=== PATIENT | male | born 1980 | race Caucasian/White ===

== ENCOUNTER → 2018-09-26 07:56 | Outpatient (CLI) | payer BC, SELFPAY ==
--- NOTE | 2018-09-26 07:57 | DI.US.S_ITS ---
PROCEDURE: US PERIPH VENOUS LOW EXTREM RT INDICATIONS: possible vericose veins right lower calf TECHNIQUE: Real-time imaging, as well as color and pulse Doppler interrogation, were performed of the lower extremity deep veins from the inguinal ligament to the popliteal fossa. COMPARISON: None. FINDINGS: The deep veins are normally compressible, and free of intraluminal thrombus. Color and pulse Doppler demonstrate normal phasic intraluminal flow. There is normal augmentation response to distal compression maneuver. IMPRESSION: No DVT is found, no superficial vein thrombosis is identified. Reported swelling and bruising, right lower extremity, etiology is not identified. A focal hematoma is not found. Dictated by: Kit Gan M.D. on 09/26/2018 at 8:27 Approved by: Kit Gan M.D. on 09/26/2018 at 8:28
== END ==
PROVIDERS: Visit Provider Physician Assistant
DX: M79.89 Other specified soft tissue disorders (principal)
CPT/HCPCS: 93971

== ENCOUNTER → 2019-03-11 11:00 | Outpatient (CLI) | payer BC, SELFPAY ==
[2019-03-11 12:18] LABS: Add Manual Diff / Slide Review NO; Basophils Absolute Auto 100 /uL (0-100); Basophils Percent Auto 1.2 % (0-2); Eosinophils Absolute Auto 600 /uL (0-450); Eosinophils Percent Auto 7.8 % (2-4); Hematocrit 45.5 % (41-53); Hemoglobin 15.4 g/dL (13.5-17.5); Lymphocytes Absolute Auto 2100 /uL (1100-4500); Lymphocytes Percent Auto 27.7 % (25-40); Mean Corpuscular HGB Conc 33.9 % (30-36); Mean Corpuscular Hemoglobin 29.1 PG (26-34); Mean Corpuscular Volume 85.7 fL (80-100); Monocytes Absolute Auto 700 /uL (0-900); Neutrophils Absolute Auto 4200 /uL (1500-7000); Neutrophils Percent Auto 54.3 % (50-75); Platelet Count 199 X10^3/uL (150-400); Red Cell Distribution Width 13.3 % (11.6-14.8); White Blood Cell Count 7.7 X10^3/uL (4.5-11.0)
[2019-03-11 12:19] LABS: Appearance Urine UA CLEAR; Bilirubin Urine UA NEGATIVE (NEGATIVE); Color Urine UA YELLOW; Glucose Urine UA NEGATIVE (Negative); Ketones Urine UA NEGATIVE (NEGATIVE); Leukocyte Esterase Urine UA NEGATIVE (NEGATIVE); Nitrite Urine UA NEGATIVE (Negative); Occult Blood Urine UA NEGATIVE (Negative); Protein Urine UA NEGATIVE (Negative); Specific Gravity Urine UA >=1.030 (1.000-1.035); Urobilinogen Urine UA 0.2 E.U./dL (0.2); pH Urine UA 5.5 (4.5-8.0)
[2019-03-11 12:39] LABS: Alanine Aminotransferase 35 IU/L (21-72); Albumin 4.4 g/dL (3.5-5.0); Albumin Globulin Ratio 1.5 (1.0-2.8); Alkaline Phosphatase 71 U/L (38-126); Aspartate Aminotransferase 20 IU/L (17-59); BUN Creatinine Ratio 17.5 (6-22); Bilirubin Total 0.5 mg/dL (0.2-1.3); Blood Urea Nitrogen 14 mg/dL (9-20); Calcium 9.4 mg/dL (8.4-10.2); Carbon Dioxide 25 mmol/L (22-32); Chloride 103 mmol/L (98-107); Cholesterol 202 mg/dL (140-199); Estimated Glomerular Filt Rate > 60.0 mL/min (>60); Globulin 2.9 g/dL (1.7-4.1); Glucose 88 mg/dL (70-100); HDL Cholesterol 44 mg/dL (40-60); HEMOLYSIS < 15 (0-50); LDL Cholesterol Calculated 136 mg/dL (<100); Potassium 4.3 mmol/L (3.4-5.1); Sodium 141 mmol/L (137-145); Total Protein 7.3 g/dL (6.3-8.2); Triglycerides 112 mg/dL (35-150)
[2019-03-11 16:16] LABS: Vitamin D 25 Hydroxy (D3) 18.4 ng/mL (30.0-100.0)
== END ==
PROVIDERS: Visit Provider Family Medicine
DX: E55.9 Vitamin D deficiency, unspecified (principal); E66.9 Obesity, unspecified
CPT/HCPCS: 36415; 80053; 80061; 81003; 82306; 84443; 85025

== ENCOUNTER 2019-07-05 21:15 | Emergency (ER) | payer BC, SELFPAY ==
--- NOTE | 2019-07-05 21:16 | DI.RAD.S_ITS ---
PROCEDURE: XR CHEST 1V INDICATIONS: chest pain TECHNIQUE: One view of the chest was acquired. COMPARISON: , , CHEST 2 VIEW, 12/08/2017, 22:08. FINDINGS: Surgical changes and devices: None. Lungs and pleura: Lungs are clear. No pleural effusions or pneumothorax. Mediastinum: Mediastinal contours appear normal. Heart size is normal. Bones and chest wall: No suspicious bony lesions. Overlying soft tissues appear unremarkable. IMPRESSION: No acute pulmonary process. Dictated by: Kathie Stacy M.D. on 07/05/2019 at 21:47 Approved by: Kathie Stacy M.D. on 07/05/2019 at 21:49
[2019-07-05 21:23] VITALS: BP 157/76; PULSE 96; RESP 16; TEMP 36.5; O2SAT 97; BMI 51.2
[2019-07-05 21:37] VITALS: BP 162/89; PULSE 92; RESP 18; O2SAT 96
[2019-07-05 21:43] LABS: Add Manual Diff / Slide Review NO; Basophils Absolute Auto 100 /uL (0-100); Basophils Percent Auto 1.1 % (0-2); Eosinophils Absolute Auto 700 /uL (0-450); Eosinophils Percent Auto 8.6 % (2-4); Hematocrit 44.7 % (41-53); Hemoglobin 15.3 g/dL (13.5-17.5); Lymphocytes Absolute Auto 2500 /uL (1100-4500); Lymphocytes Percent Auto 31.6 % (25-40); Mean Corpuscular HGB Conc 34.2 % (30-36); Mean Corpuscular Hemoglobin 29.2 PG (26-34); Mean Corpuscular Volume 85.4 fL (80-100); Monocytes Absolute Auto 500 /uL (0-900); Monocytes Percent Auto 6.1 % (3-14); Neutrophils Absolute Auto 4200 /uL (1500-7000); Neutrophils Percent Auto 52.6 % (50-75); Platelet Count 205 X10^3/uL (150-400); Red Blood Cell Count 5.24 X10^6/uL (4.5-5.9); Red Cell Distribution Width 13.3 % (11.6-14.8); White Blood Cell Count 7.9 X10^3/uL (4.5-11.0)
--- NOTE | 2019-07-05 21:45 | ED.CHESTPAIN ---
HPI - Chest Pain General Chief Complaint: Chest Pain Stated Complaint: thought having a heart attack, but not sure Time Seen by Provider: 07/05/19 21:16 Source: patient Mode of arrival: Ambulatory Limitations: no limitations History of Present Illness HPI narrative: Patient is a 38-year-old male has a prior history of cholecystectomy and had a prior history of pancreatitis here for evaluation of epigastric and chest pain. Patient states that he did eat a big meal last evening. He states that he was in his office moving some things around and when he bent over he got retrosternal chest pain. He states that it was a gradual onset but it did reach its maximum within about 30 minutes. Since then it has improved somewhat. He states that it hurts somewhat chin to took his breath away. He is currently not having any shortness of breath. He did call 911 who came to his house. Reported that he did an EKG and it was ?normal? he decided to come to the emergency department by private vehicle. Related Data Previous Rx's Medication Instructions Recorded ipratropium-albuterol 3 ml INH QIDP PRN #60 ea 06/20/16 fluticasone 250 mcg-salmeterol 50 1 inhalation INHALATION Q12H #60 05/13/18 mcg/dose blistr powdr for each inhalation albuterol sulfate 90 mcg/actuation 1 puff INHALATION Q6H PRN #18 gram 03/17/19 aerosol inhaler cyclobenzaprine 10 mg tablet 10 mg PO BEDTIME #10 tab 04/15/19 Allergies Allergy/AdvReac Type Severity Reaction Status Date / Time budesonide [From Symbicort] Allergy Unknown Verified 04/15/19 15:35 corn [CORN] Allergy Unknown Verified 04/15/19 15:35 formoterol [From Symbicort] Allergy Unknown Verified 04/15/19 15:35 CAT DANDER Allergy Unknown Uncoded 11/20/17 12:26 GRASS Allergy Unknown Uncoded 11/20/17 12:26 Review of Systems Constitutional Constitutional: Denies fever(s) and Denies headache(s) ENT Ears, Nose, Mouth, and Throat: Denies headache(s) Cardiovascular Cardiovascular: Reports chest pain and Reports dyspnea Respiratory Respiratory: Reports dyspnea Gastrointestinal Gastrointestinal: Reports abdominal pain (Epigastric pain), Denies change in stool character, Denies diarrhea and Denies vomiting Genitourinary Genitourinary: Denies dysuria Musculoskeletal Musculoskeletal: Denies myalgias and Denies arthralgias Integumentary/Breasts Skin/Breast: Denies lesions and Denies rash Neurologic Neurologic: Denies behavioral changes and Denies headache(s) Psychiatric Psychiatric: Denies behavioral changes Hematologic/Lymphatic Comments: Not on blood thinners Patient History Medical History Asthma exacerbation (Inactive) Pancreatitis (Acute) Surgical History History of cholecystectomy (Acute) Social History Smoking Status: Never smoker Substance Use Type: does not use Exam Initial Vital Signs Initial Vital Signs: Vital Signs Temperature 97.7 F 07/05/19 21:23 Pulse Rate 96 H 07/05/19 21:23 Respiratory Rate 16 07/05/19 21:23 Blood Pressure 157/76 H 07/05/19 21:23 Pulse Oximetry 97 07/05/19 21:23 Const General: cooperative, comfortable and well developed Orientation: alert, awake and oriented x3 HENMT Head: normal to inspection and normocephalic Resp Effort & Inspection: normal respiratory effort Auscultation: clear to auscultation bilaterally Cardio Rate: regular rate Rhythm: regular rhythm Skin Lesions: no lesions Rashes: no rashes Neuro General: alert and awake Cognition: normal cognition Speech: speech normal Motor: muscle tone normal throughout Extrem General: normal to inspection and capillary refill normal Psych Appearance: grossly normal and well kempt Scores HEART Score Heart Score history: Slightly Suspicious Heart Score EKG: Normal Heart Score Age: < 45 years old Heart Score risk factors: 1-2 risk factors Heart Score troponin: < or = to normal limit Heart Score Total: 1 Course Orders Ordered: ED Orders 07/05/19 21:16 XR chest 1V Stat 07/05/19 21:17 EKG-12 Lead Stat 07/05/19 21:26 XR chest 1V Stat 07/05/19 21:32 Complete Blood Count AUTO DIFF Stat Comprehensive Metabolic Panel Stat Lipase Stat Partial Thromboplastin Time Stat Prothrombin Time INR Stat Troponin & CK Cardiac Panel Stat Vital Signs Vital signs: Vital Signs - 8 hr 07/05/19 21:23 07/05/19 21:37 Temperature 97.7 F Pulse Rate 96 H 92 H Respiratory Rate 16 18 Blood Pressure 157/76 H Blood Pressure [Left Arm] 162/89 H Pulse Oximetry 97 96 MDM - Chest Pain Lab Data Attestation: I reviewed the patient's lab results. Result diagrams: 07/05/19 21:32 07/05/19 21:32 Labs: Lab Results 07/05/19 07/05/19 07/05/19 Range/Units 21:32 21:32 21:32 WBC 7.9 (4.5-11.0) X10^3/uL RBC 5.24 (4.5-5.9) X10^6/uL Hgb 15.3 (13.5-17.5) g/dL Hct 44.7 (41-53) % MCV 85.4 (80-100) fL MCH 29.2 (26-34) PG MCHC 34.2 (30-36) % RDW 13.3 (11.6-14.8) % Plt Count 205 (150-400) X10^3/uL Neut % (Auto) 52.6 (50-75) % Lymph % (Auto) 31.6 (25-40) % [place] % (Auto) 6.1 (3-14) % Eos % (Auto) 8.6 H (2-4) % Baso % (Auto) 1.1 (0-2) % Neut # (Auto) 4200 (8979-3441) /uL Lymph # (Auto) 2500 (7291-2731) /uL [place] # (Auto) 500 (0-900) /uL Eos # (Auto) 700 H (0-450) /uL Baso # (Auto) 100 (0-100) /uL PT 11.2 (10.1-12.7) SECONDS INR 1.0 (0.9-1.3) APTT 28 (26.4-36.2) SECONDS Sodium 139 (137-145) mmol/L Potassium 3.9 (3.4-5.1) mmol/L Chloride 101 (98-107) mmol/L Carbon Dioxide 29 (22-32) mmol/L BUN 18 (9-20) mg/dL Creatinine 1.00 (0.66-1.25) mg/dL Estimated GFR > 60.0 (>60) mL/min BUN/Creatinine Ratio 18.0 (6-22) Glucose 122 H (70-100) mg/dL Calcium 9.5 (8.4-10.2) mg/dL Total Bilirubin 0.4 (0.2-1.3) mg/dL AST 53 (17-59) IU/L ALT 39 (<50) IU/L Alkaline Phosphatase 78 (38-126) U/L Total Creatine Kinase 109 (55-170) U/L CK-MB (CK-2) 0.71 (<2.37) ng/mL CK-MB (CK-2) Rel Index 0.7 L (1.5-5.0) % Troponin I < 0.012 (0.01-0.034) ng/mL Total Protein 7.7 (6.3-8.2) g/dL Albumin 4.5 (3.5-5.0) g/dL Globulin 3.2 (1.7-4.1) g/dL Albumin/Globulin Ratio 1.4 (1.0-2.8) Lipase 301 H (23-300) U/L Imaging Data Chest x-ray: Radiologist's impression: [address] [id number] XRay Report Signed Patient: Donis Arrington [facility]#: [id number] : 1980Acct:[id number] Age/Sex: 38 / MDate of Service: 07/05/19 Loc: ED Accession Number: [id number] Procedure: XR chest 1V Ordering Provider: Noel Dickerson D.O. PROCEDURE: XR CHEST 1V INDICATIONS: chest pain TECHNIQUE: One view of the chest was acquired. COMPARISON: [facility], , CHEST 2 VIEW, 12/08/2017, 22:08. FINDINGS: Surgical changes and devices: None. Lungs and pleura: Lungs are clear. No pleural effusions or pneumothorax. Mediastinum: Mediastinal contours appear normal. Heart size is normal. Bones and chest wall: No suspicious bony lesions. Overlying soft tissues appear unremarkable. IMPRESSION: No acute pulmonary process. Dictated by: Kathie Stacy M.D. on 07/05/2019 at 21:47 Approved by: Kathie Stacy M.D. on 07/05/2019 at 21:49 ECG Data Attestation: I personally reviewed and interpreted this ECG as follows: Prior ECG tracings: not available for review Interpretation: Sinus rhythm Normal axis Normal QRS Normal QTC No ST T wave changes MDM Narrative Medical decision making narrative: Patient's history and physical exam is not consistent with ACS. His EKG is unremarkable. Chest x-ray is unremarkable. Low risk heart score. Asymptomatic the time my exam. I do suspect this is a GI etiology. I discussed this with the patient. Did discuss importance of following up with his primary provider so that he could potentially get a referral to see GI. Sounds like he has had esophageal spasms in the past. His given return precautions follow-up instructions. He expressed understanding and agreement plan Discharge Plan Departure Patient Disposition: Home Clinical Impression: Atypical chest pain Discharge Date/Time: 07/05/19 22:24 Instructions: DI for Gastroesophageal Reflux Disease (GERD), DI for Atypical Chest Pain Activity Restrictions/Additional Instructions: I recommend that you continue all of your medications as directed. Contact your primary provider to discuss the indications for referral to see GI. Return to the emergency department for any new or worsening symptoms Prescriptions: No Action cyclobenzaprine 10 mg tablet 10 mg PO BEDTIME Qty: 10 RF: 0 triamcinolone acetonide [Kenalog] 40 mg/mL suspension 40 mg IM ONCE Qty: 1 RF: 0 ipratropium-albuterol 3 ML solution for nebulization 3 ml INH QIDP PRNQty: 60 RF: 1 fluticasone propion-salmeterol [Advair Diskus] 250-50 mcg/dose blister with device 1 inhalation INHALATION Q12H Qty: 60 RF: 5 albuterol sulfate [ProAir HFA] 90 mcg/actuation HFA aerosol inhaler 1 puff INHALATION Q6H PRN (Reason: shortness of breath) Qty: 18 RF: 5 Referrals: Marion Gallagher DO [Primary Care Provider] -
[2019-07-05 21:47] LABS: Prothrombin Time 11.2 SECONDS (10.1-12.7)
[2019-07-05 21:50] LABS: PTT Partial Thromboplastin Tim 28 SECONDS (26.4-36.2)
[2019-07-05 21:52] LABS: Alanine Aminotransferase 39 IU/L (<50); Albumin 4.5 g/dL (3.5-5.0); Albumin Globulin Ratio 1.4 (1.0-2.8); Alkaline Phosphatase 78 U/L (38-126); Aspartate Aminotransferase 53 IU/L (17-59); Bilirubin Total 0.4 mg/dL (0.2-1.3); Blood Urea Nitrogen 18 mg/dL (9-20); Calcium 9.5 mg/dL (8.4-10.2); Carbon Dioxide 29 mmol/L (22-32); Chloride 101 mmol/L (98-107); Creatine Kinase 109 U/L (55-170); Estimated Glomerular Filt Rate > 60.0 mL/min (>60); Globulin 3.2 g/dL (1.7-4.1); Glucose 122 mg/dL (70-100); HEMOLYSIS 27 (0-50); Lipase 301 U/L (23-300); Potassium 3.9 mmol/L (3.4-5.1); Sodium 139 mmol/L (137-145); Total Protein 7.7 g/dL (6.3-8.2)
[2019-07-05 22:03] LABS: Troponin I < 0.012 ng/mL (0.01-0.034)
[2019-07-05 22:07] LABS: CKMB % Relative Index 0.7 % (1.5-5.0); Creatine Kinase MB 0.71 ng/mL (<2.37)
== END 2019-07-05 22:24 | disposition home or self-care (01) ==
PROVIDERS: Emergency Provider Emergency Medicine; PCP Family Medicine
DX: R07.89 Other chest pain (principal); R10.13 Epigastric pain; R06.00 Dyspnea, unspecified
CPT/HCPCS: 36415; 71045; 80053; 82550; 82553; 83690; 84484; 85025; 85610; 85730; 93005; 99283; 99285

== ENCOUNTER → 2019-07-27 14:47 | Outpatient (CLI) | payer BC, SELFPAY ==
--- NOTE | 2019-07-27 14:49 | DI.RAD.S_ITS ---
PROCEDURE: XR LUMBAR SPINE 2-3V INDICATIONS: back pain TECHNIQUE: 3 views of the lumbar spine were acquired. COMPARISON: None. FINDINGS: Bones: 5 [id number] vertebrae are present. There is slightly scoliotic bony alignment, convex leftward centered at L3. No vertebral body compression fractures. No suspicious bony lesions. Mild degenerative disc disease is seen at the L1-L2 level and the L5-S1 level. Soft tissues: Overlying bowel gas pattern is normal. No suspicious soft tissue calcifications. IMPRESSION: Minimal degenerative disc disease, at the thoracolumbar junction and lumbosacral junction. No compression fracture found. Slight levoscoliosis centered at the mid lumbosacral spine. Dictated by: Kit Gan M.D. on 07/27/2019 at 15:20 Approved by: Kit Gan M.D. on 07/27/2019 at 15:21
== END ==
PROVIDERS: PCP Family Medicine; Visit Provider Family Medicine
DX: M54.16 Radiculopathy, lumbar region (principal); M54.9 Dorsalgia, unspecified
CPT/HCPCS: 72100

== ENCOUNTER → 2020-03-12 14:13 | Outpatient (CLI) | payer BC, SELFPAY ==
--- NOTE | 2020-03-12 14:15 | DI.RAD.S_ITS ---
PROCEDURE: XR HIP W PEL IF DONE RT 2V INDICATIONS: R hip pain x years TECHNIQUE: AP pelvis with lateral view(s) of the right hip(s). COMPARISON: [facility], CR, XR LUMBAR SPINE 2-3V, 07/27/2019, 14:46. FINDINGS: Bones: No fractures or dislocations. Pelvic ring appears intact. No suspicious bony lesions. There is mild superior joint space narrowing seen of right hip, with associated remodeling changes with subchondral sclerosis and osteophyte formation. Soft tissues: The visualized bowel gas pattern is normal. No suspicious soft tissue calcifications. IMPRESSION: Mild degenerative changes seen of the right hip. If it would be helpful for clinical management decision making, please consider a dedicated hip MRI for further evaluation (assuming that there is no contraindication). If there is strong clinical concern for a labral abnormality, this should be performed according to the arthrogram protocol. Dictated by: Ziyad Hawley M.D. on 03/12/2020 at 13:45 Approved by: Ziyad Hawlye M.D. on 03/12/2020 at 13:46
== END ==
PROVIDERS: PCP Registered Nurse Diabetes Educator; Referring Provider Registered Nurse Diabetes Educator; Visit Provider Registered Nurse Diabetes Educator
DX: M54.5 Low back pain (principal); M25.551 Pain in right hip
CPT/HCPCS: 73502

== ENCOUNTER → 2020-07-06 16:51 | Outpatient (CLI) | payer BC, SELFPAY ==
[2020-07-06 17:39] LABS: D Dimer < 200 ng/mL (<230)
== END ==
PROVIDERS: PCP Registered Nurse Diabetes Educator; Referring Provider Student in an Organized Health Care Education/Training Program; Visit Provider Student in an Organized Health Care Education/Training Program
DX: M79.652 Pain in left thigh (principal)
CPT/HCPCS: 36415; 85379

== ENCOUNTER → 2020-09-05 10:36 | Outpatient (CLI) | payer BC, SELFPAY ==
[2020-09-05 11:26] LABS: Add Manual Diff / Slide Review NO; Basophils Absolute Auto 100 /uL (0-100); Basophils Percent Auto 1.5 % (0-2); Eosinophils Absolute Auto 700 /uL (0-450); Eosinophils Percent Auto 8.6 % (2-4); Hematocrit 42.6 % (41-53); Hemoglobin 13.9 g/dL (13.5-17.5); Lymphocytes Absolute Auto 2100 /uL (1100-4500); Lymphocytes Percent Auto 26.8 % (25-40); Mean Corpuscular HGB Conc 32.8 % (30-36); Mean Corpuscular Volume 85.5 fL (80-100); Monocytes Absolute Auto 800 /uL (0-900); Neutrophils Absolute Auto 4300 /uL (1500-7000); Neutrophils Percent Auto 53.1 % (50-75); Platelet Count 215 X10^3/uL (150-400); Red Blood Cell Count 4.98 X10^6/uL (4.5-5.9); Red Cell Distribution Width 13.6 % (11.6-14.8)
[2020-09-05 11:39] LABS: Hemoglobin A1C% w Est Avg Glu 6.2 % (4.0-6.0)
[2020-09-05 11:57] LABS: Alanine Aminotransferase 32 IU/L (<50); Albumin 4.2 g/dL (3.5-5.0); Albumin Globulin Ratio 1.5 (1.0-2.8); Alkaline Phosphatase 77 U/L (38-126); Aspartate Aminotransferase 23 IU/L (17-59); BUN Creatinine Ratio 11.5 (6-22); Bilirubin Total 0.3 mg/dL (0.2-1.3); Blood Urea Nitrogen 10 mg/dL (9-20); Calcium 9.3 mg/dL (8.4-10.2); Carbon Dioxide 31 mmol/L (22-32); Chloride 103 mmol/L (98-107); Cholesterol 188 mg/dL (140-199); Estimated Glomerular Filt Rate > 60.0 mL/min (>60); Globulin 2.8 g/dL (1.7-4.1); Glucose 106 mg/dL (70-100); HDL Cholesterol 44 mg/dL (40-60); HEMOLYSIS < 15 (0-50); LDL Cholesterol Calculated 124 mg/dL (<100); Potassium 4.3 mmol/L (3.4-5.1); Sodium 139 mmol/L (137-145); Triglycerides 100 mg/dL (35-150)
== END ==
PROVIDERS: PCP Family Medicine; Referring Provider Family Medicine; Visit Provider Family Medicine
DX: E78.5 Hyperlipidemia, unspecified (principal); R73.09 Other abnormal glucose
CPT/HCPCS: 36415; 80053; 80061; 83036; 85025

== ENCOUNTER 2021-01-12 02:20 | Emergency (ER) | payer BC, SELFPAY ==
[2021-01-12 02:30] VITALS: BP 112/55; PULSE 89; RESP 98; TEMP 37.1; O2SAT 98; BMI 50.2
--- NOTE | 2021-01-12 02:45 | DI.US.S_ITS ---
PROCEDURE: US PERIPH VENOUS LOW EXTREM BI INDICATIONS: EDEMA TECHNIQUE: Real-time imaging, as well as color and pulse Doppler interrogation, were performed of the deep veins of both legs from the inguinal ligament to the popliteal fossa. COMPARISON: None. FINDINGS: Right: The common femoral, femoral and popliteal veins are normally compressible, and free of intraluminal thrombus. Color and pulse Doppler demonstrate normal phasic intravascular flow. There is normal augmentation response to distal compression maneuver. Left: The common femoral, femoral and popliteal veins are normally compressible, and free of intraluminal thrombus. Color and pulse Doppler demonstrate normal phasic intravascular flow. There is normal augmentation response to distal compression maneuver. IMPRESSION: No evidence of deep vein thrombosis involving either the right or left lower extremities. Dictated by: Lay Garcia MD, PhD on 01/12/2021 at 8:17 Approved by: Lay Garcia MD, PhD on 01/12/2021 at 8:18
--- NOTE | 2021-01-12 02:45 | ED.EXTPRO ---
HPI - Extremity Problem General Chief complaint: Extremity Problem,Nontraumatic Stated complaint: redness/swelling both legs Time Seen by Provider: 01/12/21 02:38 Source: patient Mode of arrival: Ambulatory Limitations: no limitations History of Present Illness HPI Narrative: Patient denies any chest pain dyspnea. No recent illness. No fever chills. Denies any leg pain or redness. Patient here complains only of bilateral equal leg swelling. 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 Has been at the desk more than usual in the past 2 or 3 weeks. Today had many hours of sitting. Did not elevate his feet or legs. 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 Would work for hours at a time. Take short breaks. No prior history of DVT. No recent illness. No recent surgery. MD Complaint: extremity swelling Related Data Previous Rx's Medication Instructions Recorded ipratropium-albuterol 3 ml INH QIDP PRN #60 ea 06/20/16 albuterol sulfate 90 mcg/actuation 2 puff INHALATION Q4H PRN #18 g 07/06/20 aerosol inhaler fluticasone 250 mcg-salmeterol 50 1 inh INHALATION Q12H #60 each 10/04/20 mcg/dose blistr powdr for inhalation Allergies Allergy/AdvReac Type Severity Reaction Status Date / Time corn [CORN] Allergy Severe aslthma Verified 09/05/20 09:31 and Upper resp inflamamation. budesonide [From Symbicort] Allergy Unknown Verified 09/05/20 09:31 formoterol [From Symbicort] Allergy Unknown Verified 09/05/20 09:31 CAT DANDER Allergy Severe aslthma Uncoded 09/05/20 09:31 and Upper resp inflamamation. GRASS Allergy Severe aslthma Uncoded 09/05/20 09:31 and Upper resp inflamamation. Review of Systems Review of Systems Narrative: GENERAL: Denies chills, fatigue, malaise, fever, sweats. HEENT: Denies sinus pain, ear pain, sore throat RESPIRATORY: Denies dyspnea, cough CARDIOVASCULAR: Denies chest pain, palpitations GASTROINTESTINAL: Denies nausea, vomiting, abdominal pain : Denies dysuria, frequency, hematuria MUSCULOSKELETAL: denies muscle or bony pain, complains of edema SKIN: Denies rash, skin lesions NEUROLOGIC: Denies weakness, numbness ROS Unobtainable: All systems reviewed & are unremarkable except as noted in HPI and below Patient History Medical History (Updated 01/12/21 @ 03:54 by Rosendo Nova MD) Asthma exacerbation Hip pain Low back pain Pancreatitis Surgical History History of cholecystectomy Social History marital status: number of children: 3 household members: spouse and children Smoking Status: Never smoker alcohol intake: never substance use type: does not use Smoking Status: Never smoker Substance Use Type: does not use Exam Narrative Exam Narrative: GENERAL: in no distress, not toxic not dyspneic HEAD: Normocephalic. EYES: Pupils equal round No scleral icterus. No injection no discharge ENT: Mucous membranes moist. NECK: Trachea midline. CARDIOVASCULAR: Regular rate and rhythm without murmurs RESPIRATORY: Clear to auscultation. Breath sounds equal bilaterally. No wheezes, rales, or rhonchi. GASTROINTESTINAL: Abdomen soft, non-tender EXTREMITIES: No gross deformities. There is symmetric bilateral leg and ankle and pedal edema. No cellulitis. Not tender on palpation of calves. No palpable cords. Skin intact. No erythema or induration BACK: No flank tenderness. NEURO: AOx4. SKIN: Warm and dry PSYCH: Not anxious, is cooperative Initial Vital Signs Initial Vital Signs: Vital Signs Temperature 98.8 F 01/12/21 02:30 Pulse Rate 89 01/12/21 02:30 Respiratory Rate 98 H 01/12/21 02:30 Blood Pressure 112/55 L 01/12/21 02:30 Pulse Oximetry 98 01/12/21 02:30 Course Course Course Narrative: No new issues during course of stay Orders Ordered: ED Orders 01/12/21 02:45 US periph venous low extrem bi Stat Reevaluation(s) Reevaluation #1: Reviewed ultrasound results with patient. He agrees with treatment plan discharge home and follow up and will elevate his legs when at rest. Also he will make attempts to keep his legs elevated with longer wrist at the desk. 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 Vital signs exam and ultrasound reassuring. At this time no EKG blood work BNP chest x-ray. Patient has no no no no chest complaints chest pain palpitations or dyspnea. Clinically likely dependent edema given patient's long hours working in in seated position in the past 2 weeks and especially today greater than 14 hours Discharge Plan Departure Patient Disposition: Home Clinical Impression: Edema, peripheral Instructions: DI for Peripheral Edema -- Bilateral Activity Restrictions/Additional Instructions: See family doctor within a week for recheck. Return if worsening symptoms or if any questions or concerns. Return if any chest pain or trouble breathing. Return if any fever or redness to the legs. Prescriptions: No Action ipratropium-albuterol 3 ML solution for nebulization 3 ml INH QIDP PRNQty: 60 RF: 1 albuterol sulfate [ProAir HFA] 90 mcg/actuation HFA aerosol inhaler 2 puff INHALATION Q4H PRN (Reason: shortness of breath) Qty: 18 RF: 3 fluticasone propion-salmeterol [Advair Diskus] 250-50 mcg/dose blister with device 1 inh INHALATION Q12H Qty: 60 RF: 5 Referrals: Brad Oliver MD [Primary Care Provider] -
[2021-01-12 04:13] VITALS: BP 122/63; PULSE 73; RESP 15; O2SAT 96
== END 2021-01-12 04:13 | disposition home or self-care (01) ==
PROVIDERS: Emergency Provider Emergency Medicine; PCP Family Medicine
DX: R60.0 Localized edema (principal)
CPT/HCPCS: 93970; 99281; 99283

== ENCOUNTER 2021-06-13 22:17 | Emergency (ER) | payer BC, SELFPAY ==
[2021-06-13 22:18] VITALS: BP 145/85; PULSE 86; RESP 20; TEMP 36.9; O2SAT 94; BMI 50.2
[2021-06-13] MEDS: TET,DIPH,PERTUSS(ACELL),VAC/PF 0.5 ML SYRINGE IM (23:56)
[2021-06-14] VITALS: BP 133/84; PULSE 85; RESP 15; O2SAT 96
--- NOTE | 2021-06-14 01:10 | ED_ITS ---
HPI - Wound/Laceration General Chief Complaint: Wound/Laceration Stated Complaint: left leg infection Time Seen by Provider: 06/14/21 01:09 Source: patient Mode of arrival: Ambulatory Limitations: no limitations History of Present Illness HPI narrative: Otherwise healthy 40-year-old gentleman with history of asthma only was vacationing in [facility] and 5-6 days ago cut the posterior portion of his left lower calf on a pool ladder. It was a bit ragged he used antibiotic ointment and Band-Aids at the time. Had a difficult time keeping it covered because he was in an out both pool and salt water along with the significant humidity. He has noted over the last day or so that it is becoming increasingly red and he is worried that it is infected. He is able to walk on the leg has not noticed increased swelling to the lower leg and is not having any lymphangitis streaking. He describes no fevers, abdominal pain, vomiting diarrhea. Related Data Previous Rx's Medication Instructions Recorded ipratropium 0.5 mg-albuterol 3 mg 3 ml INH QIDP PRN #60 ea 06/20/16 (2.5 mg base)/3 mL nebulization soln albuterol sulfate 90 mcg/actuation 2 puff INHALATION Q4H PRN #18 g 07/06/20 aerosol inhaler (ProAir HFA) fluticasone 250 mcg-salmeterol 50 1 inh INHALATION Q12H #60 each 10/04/20 mcg/dose blistr powdr for inhalation (Advair Diskus) cephalexin 500 mg capsule 500 mg PO TID 7 Days #21 cap 06/14/21 Allergies Allergy/AdvReac Type Severity Reaction Status Date / Time corn [CORN] Allergy Severe aslthma Verified 06/13/21 22:24 and Upper resp inflamamation. budesonide [From Symbicort] Allergy Unknown Verified 06/13/21 22:24 formoterol [From Symbicort] Allergy Unknown Verified 06/13/21 22:24 CAT DANDER Allergy Severe aslthma Uncoded 09/05/20 09:31 and Upper resp inflamamation. GRASS Allergy Severe aslthma Uncoded 09/05/20 09:31 and Upper resp inflamamation. Review of Systems Review of Systems Narrative: Remainder of complete review of systems is otherwise unremarkable except for that included in the HPI. Patient History Medical History (Updated 06/14/21 @ 01:17 by Georgina Genao MD) Asthma exacerbation Hip pain Low back pain Pancreatitis Surgical History History of cholecystectomy Social History marital status: number of children: 3 household members: spouse and children Smoking Status: Never smoker alcohol intake: never substance use type: does not use Smoking Status: Never smoker alcohol intake frequency: 0-2 drinks per day Substance Use Type: marijuana Exam Narrative Exam Narrative: General: Alert appropriate in no acute distress Respiratory: Able to speak in full sentences, no obvious respiratory distress Skin: No obvious rashes, warm and dry Neurologic: Grossly intact no obvious asymmetries or abnormalities Psych: appropriate insight and affect, cooperative Extremity: There is a 5 cm healing laceration on the lower aspect of the left calf. It got approximately 5 cm of surrounding erythema without abscess or drainage. His calf itself is not tender there is no lymphangitic streaking he has no inguinal adenopathy. He is able to walk. Initial Vital Signs Initial Vital Signs: Vital Signs Temperature 98.5 F 06/13/21 22:18 Pulse Rate 86 06/13/21 22:18 Respiratory Rate 20 06/13/21 22:18 Blood Pressure 145/85 H 06/13/21 22:18 Pulse Oximetry 94 06/13/21 22:18 Course Orders Ordered: Discontinued Medications Diphtheria/Tetanus/Acell Pertussis (Tet,Diph,Pertuss(Acell),Vac/Pf 0.5 Ml Syringe) 0.5 ml IM .ONCE ONE Stop: 06/13/21 22:42 Last Admin: 06/13/21 23:56 Dose: 0.5 ml Documented by: [email or web address] Vital Signs Vital signs: Vital Signs - 8 hr 06/13/21 22:18 06/14/21 00:00 Temperature 98.5 F Pulse Rate 86 85 Respiratory Rate 20 15 Blood Pressure 145/85 H 133/84 Pulse Oximetry 94 96 MDM - Wound/Laceration MDM Narrative Medical decision making narrative: 40-year-old gentleman day 6 of a wound infec tion to the left calf now becoming infected. No evidence of sepsis or deeper abscess or question of osteomyelitis or bony involvement. Will begin him on Keflex 500 mg t.i.d. for 7 days. Prescription is given he is safe for home discharge Discharge Plan Departure Patient Disposition: Home Clinical Impression: Wound infection Instructions: DI for Wound Infection Activity Restrictions/Additional Instructions: Thank you for coming in today The wound that you got down in [facility] is in fact getting infected. It does not look like there is a deeper abscess but it does look like you would benefit from antibiotics. 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 If you are noticing that it is getting worse, your having red streaks going up her leg your having difficulty walking, developing fevers or new symptoms, please feel free to return to the ER for further evaluation Prescriptions: New cephalexin 500 mg capsule 500 mg PO TID 7 Days Qty: 21 RF: 0 No Action ipratropium-albuterol 3 ML solution for nebulization 3 ml INH QIDP PRNQty: 60 RF: 1 albuterol sulfate [ProAir HFA] 90 mcg/actuation HFA aerosol inhaler 2 puff INHALATION Q4H PRN (Reason: shortness of breath) Qty: 18 RF: 3 fluticasone propion-salmeterol [Advair Diskus] 250-50 mcg/dose blister with device 1 inh INHALATION Q12H Qty: 60 RF: 5 Referrals: Brad Oliver MD [Primary Care Provider] -
[2021-06-14] MEDS: cephALEXin 250 MG CAPSULE 500 MG PO (01:23)
[2021-06-14 01:49] VITALS: BP 119/56; PULSE 77; RESP 15; O2SAT 100
== END 2021-06-14 01:50 | disposition home or self-care (01) ==
PROVIDERS: Emergency Provider Emergency Medicine; PCP Family Medicine
DX: T81.49XA Infection following a procedure, other surgical site, initial encounter (principal); Z23 Encounter for immunization
CPT/HCPCS: 90471; 99283; 99284; 90715

== ENCOUNTER → 2021-11-08 10:54 | Outpatient (CLI) | payer BC, SELFPAY ==
[2021-11-08 11:24] LABS: Hematocrit 42.2 % (41-53); Hemoglobin 14.3 g/dL (13.5-17.5); Mean Corpuscular HGB Conc 33.9 % (30-36); Mean Corpuscular Hemoglobin 28.5 PG (26-34); Platelet Count 205 X10^3/uL (150-400); Red Blood Cell Count 5.02 X10^6/uL (4.5-5.9); Red Cell Distribution Width 13.8 % (11.6-14.8)
[2021-11-08 12:25] LABS: Alanine Aminotransferase 28 IU/L (<50); Albumin 4.6 g/dL (3.5-5.0); Albumin Globulin Ratio 1.4 (1.0-2.8); Alkaline Phosphatase 68 U/L (38-126); Aspartate Aminotransferase 27 IU/L (17-59); BUN Creatinine Ratio 18.3 (6-22); Bilirubin Total 0.7 mg/dL (0.2-1.3); Blood Urea Nitrogen 17 mg/dL (9-20); Calcium 9.5 mg/dL (8.4-10.2); Carbon Dioxide 27 mmol/L (22-32); Chloride 104 mmol/L (98-107); Cholesterol 185 mg/dL (140-199); Estimated Glomerular Filt Rate > 60.0 mL/min (>60); Globulin 3.3 g/dL (1.7-4.1); Glucose 100 mg/dL (70-100); HDL Cholesterol 39 mg/dL (40-60); HEMOLYSIS < 15 (0-50); LDL Cholesterol Calculated 128 mg/dL (<100); Potassium 3.9 mmol/L (3.4-5.1); Sodium 140 mmol/L (137-145); Total Protein 7.9 g/dL (6.3-8.2); Triglycerides 92 mg/dL (35-150)
[2021-11-08 12:43] LABS: Neutrophils Absolute Manual 5850 /uL (3000-5900); Total Cells Counted 100
[2021-11-08 12:44] LABS: RBC Morphology Normal Morphology
[2021-11-08 12:51] LABS: Thyroid Stimulating Hormone 1.86 uIU/mL (0.47-4.68)
[2021-11-08 15:41] LABS: Microalbumin Urine Random 1.7 mg/dL (0-1.6)
[2021-11-08 16:06] LABS: Creatinine Urine Random 405.7 mg/dL; Microalbumi Creatinin Ratio Ur 4.1 ug/mg CR (<30)
== END ==
PROVIDERS: PCP Family Medicine; Referring Provider Physician Assistant; Visit Provider Physician Assistant
DX: E78.5 Hyperlipidemia, unspecified (principal); R73.01 Impaired fasting glucose; R89.8 Other abnormal findings in specimens from other organs, systems and tissues
CPT/HCPCS: 36415; 80053; 80061; 82043; 82570; 84443; 85025

== ENCOUNTER → 2021-11-22 09:37 | Outpatient (CLI) | payer BC, SELFPAY ==
--- NOTE | 2021-11-22 09:38 | DI.US.S_ITS ---
PROCEDURE: US EXTREMITY NONVASC LOWER LT INDICATIONS: Irregularly shaped mass posterior left calf TECHNIQUE: Real-time scanning was performed of the left calf , with image documentation. COMPARISON: [facility], EXTREMITY NON-VASCULAR LTD, 10/16/2017, 16:13. FINDINGS: Edematous change without evidence of discrete mass. IMPRESSION: Edematous change without evidence of a discrete mass. Consider magnetic resonance imaging for further evaluation as clinically warranted. Dictated by: Hans Gray M.D. on 11/22/2021 at 13:35 Approved by: Hans Gray M.D. on 11/22/2021 at 13:36
== END ==
PROVIDERS: PCP Family Medicine; Referring Provider Physician Assistant; Visit Provider Physician Assistant
DX: R22.42 Localized swelling, mass and lump, left lower limb (principal)
CPT/HCPCS: 76882

== ENCOUNTER → 2021-12-23 18:45 | Outpatient (CLI) | payer BC, SELFPAY | PROVIDERS: PCP Family Medicine; Visit Provider Nurse Practitioner Critical Care Medicine | DX: R30.0 Dysuria (principal) | CPT/HCPCS: 87086 ==

== ENCOUNTER 2021-12-23 18:52 | Emergency (ER) | payer BC, SELFPAY ==
--- NOTE | 2021-12-23 18:53 | DI.US.S_ITS ---
PROCEDURE: US SCROTUM INDICATIONS: SWOLLEN, TENDER TESTICLE TECHNIQUE: Real-time scanning was performed of the scrotum and testicles, with image documentation. Color and pulse Doppler interrogation was performed of both testicles. COMPARISON: None. FINDINGS: Right: Testicle is normal in size at 3.7 x 2.2 x 3.0 cm, and homogenous in echotexture. Epididymis is normal in overall size and morphology. No hydrocele or varicoceles. Overlying scrotal skin is normal in thickness. Left: Testicle is normal in size at 3.6 x 2.2 x 3.2 cm, and homogeneous in echotexture. Epididymis is normal in overall size and morphology and is mildly heterogeneous. No hydrocele but there is a mild varicocele on the left. Overlying scrotal skin is normal in thickness. Doppler: Color and pulse Doppler demonstrate normal and symmetric arterial flow in both testicles. IMPRESSION: Mild left-sided varicocele, as the likely cause for current symptomatology. No sign of testicular torsion. Dictated by: Kit Gan M.D. on 12/23/2021 at 20:33 Approved by: Kit Gan M.D. on 12/23/2021 at 20:35
[2021-12-23 19:00] VITALS: BP 156/74; PULSE 91; RESP 18; TEMP 36.6; O2SAT 98; BMI 52.8
--- NOTE | 2021-12-23 19:34 | ED_ITS ---
HPI - Male Genitourinary General Chief complaint: Urogenital-Male Stated complaint: Swollen Testicle Time Seen by Provider: 12/23/21 18:53 Source: patient Mode of arrival: Ambulatory History of Present Illness HPI Narrative: 41-year-old male nonsmoker with history of asthma and hyperlipidemia presents for evaluation of a painful swollen left testicle since at least yesterday. He denies any specific injury or time of onset but states that has been gradually worsening since then. He denies any dysuria, frequency or urgency. He denies any abdominal pain, nausea or vomiting. He has no history of the same. He is sexually active but only with his and has no reason to suspect any infectious cause. He is otherwise well and free of complaint Related Data Previous Rx's Medication Instructions Recorded ipratropium 0.5 mg-albuterol 3 mg 3 ml INH QIDP PRN #60 ea 06/20/16 (2.5 mg base)/3 mL nebulization soln albuterol sulfate 90 mcg/actuation 2 puff INHALATION Q4H PRN #18 g 07/06/20 aerosol inhaler (ProAir HFA) fluticasone 250 mcg-salmeterol 50 1 inh INHALATION Q12H #60 each 08/28/21 mcg/dose blistr powdr for inhalation (Advair Diskus) nirmatrelvir 300 mg (150 mg x See Rx Instructions PO .COMPLEX 12/07/21 2)-ritonavir 100 mg tablet (EUA) #30 tab (Paxlovid 300 mg () hydrocodone 5 mg-acetaminophen 325 1 tab PO Q4-6H PRN #10 tab 12/23/21 mg tablet Allergies Allergy/AdvReac Type Severity Reaction Status Date / Time corn [CORN] Allergy Severe aslthma Verified 12/23/21 18:07 and Upper resp inflamamation. budesonide [From Symbicort] Allergy Unknown Verified 12/23/21 18:07 formoterol [From Symbicort] Allergy Unknown Verified 12/23/21 18:07 CAT DANDER Allergy Severe aslthma Uncoded 12/23/21 18:07 and Upper resp inflamamation. GRASS Allergy Severe aslthma Uncoded 12/23/21 18:07 and Upper resp inflamamation. Review of Systems Review of Systems Narrative: GENERAL: Denies chills, fatigue, malaise, fever, sweats. HEENT: Denies sinus pain, ear pain, sore throat, difficulty swallowing, dizziness. RESPIRATORY: Denies dyspnea, cough, wheezing, hemoptysis, sputum. CARDIOVASCULAR: Denies chest pain, palpitations, orthopnea, edema, GASTROINTESTINAL: Denies nausea, vomiting, abdominal pain, diarrhea, constipation, melena. : See HPI MUSCULOSKELETAL: denies weakness, joint pain, or bony pain SKIN: Denies rash, skin lesions, or other NEUROLOGIC: Denies weakness, headache, numbness, change in speech, confusion, seizures, incoordination. PSYCHIATRIC: No concerning psychosocial issues. 12 point review of systems is negative except for those stated above Patient History Medical History Asthma exacerbation Hip pain Low back pain Pancreatitis Surgical History History of cholecystectomy Social History marital status: number of children: 3 household members: spouse and children Smoking Status: Never smoker alcohol intake: never substance use type: does not use Smoking Status: Never smoker alcohol intake frequency: 0-2 drinks per day Substance Use Type: marijuana Exam Narrative Exam Narrative: GENERAL: [41] year old patient appears stated age. Well-developed patient, in mild distress. HEAD: Atraumatic. Normocephalic. EYES: Pupils equal round and reactive. Extraocular motions intact. No scleral icterus. No injection or drainage. ENT: Nose without bleeding, purulent drainage. Throat without erythema, tonsillar hypertrophy or exudate. Airway patent. NECK: Trachea midline. Non tender CARDIOVASCULAR: Regular rate and rhythm without murmurs, gallops, or rubs. RESPIRATORY: Clear to auscultation. Breath sounds equal bilaterally. No wheezes, rales, or rhonchi. GASTROINTESTINAL: Abdomen soft, non-tender, nondistended. : Left testicle tender with possible palpable swelling region at superior pole, no significant swelling, erythema or other discoloration, no change with elevation of testicle, no obvious inguinal bulge or suspicion of hernia. This examination is performed with patient standing EXTREMITIES: No edema or joint tenderness. BACK: Nontender without deformity or crepitance. No flank tenderness. NEURO: AOx3. SKIN: No rash or erythema of visible areas Initial Vital Signs Initial Vital Signs: Vital Signs Temperature 98 F 12/23/21 19:00 Pulse Rate 91 H 12/23/21 19:00 Respiratory Rate 18 12/23/21 19:00 Blood Pressure 156/74 H 12/23/21 19:00 Pulse Oximetry 98 12/23/21 19:00 Course Orders Ordered: ED Orders 12/23/21 18:53 US scrotum Stat Vital Signs Vital signs: Vital Signs - 8 hr 12/23/21 19:00 12/23/21 20:55 Temperature 98 F Pulse Rate 91 H 90 Respiratory Rate 18 18 Blood Pressure 156/74 H 141/80 H Pulse Oximetry 98 98 MDM - Male Genitourinary Imaging Data US Scrotal: Radiologist's Impression: [address] [address] Ultrasound Report Signed Patient: Donis Arrington MR#: [id number] : 1980 Acct:[id number] Age/Sex: 40 / M Date of Service: 12/23/21 Loc: ED Accession Number: [id number] ?? Procedure: US scrotum Ordering Provider: Tramaine Dalal D.O. PROCEDURE:? US SCROTUM ? INDICATIONS:? SWOLLEN, TENDER TESTICLE ? TECHNIQUE:? Real-time scanning was performed of the scrotum and testicles, with image documentation.? Color and pulse Doppler interrogation was performed of both testicles.? ? COMPARISON:? None. ? FINDINGS:? ? Right:? Testicle is normal in size at 3.7 x 2.2 x 3.0 cm, and homogenous in echotexture.? Epididymis is normal in overall size and morphology.? No hydrocele or varicoceles.? Overlying scrotal skin is normal in thickness.? ? Left:? Testicle is normal in size at 3.6 x 2.2 x 3.2 cm, and homogeneous in echotexture.? Epididymis is normal in overall size and morphology and is mildly heterogeneous.? No hydrocele but there is a mild varicocele on the left.? Overlying scrotal skin is normal in thickness.? ? Doppler:? Color and pulse Doppler demonstrate normal and symmetric arterial flow in both testicles.? ? IMPRESSION:? Mild left-sided varicocele, as the likely cause for current symptomatology.? No sign of testicular torsion. ? ? Dictated by: Kit Gan M.D. on 12/23/2021 at 20:33 ? ? Approved by: Kit Gan M.D. on 12/23/2021 at 20:35 ? Discharge Plan Departure Patient Disposition: Home Clinical Impression: Left varicocele Instructions: Varicocele Activity Restrictions/Additional Instructions: *You have been diagnosed with [Left varicocele ] *What to do: *Please continue to take your regular medications as directed. [x ] New medication prescriptions sent to your pharmacy: [[facility] in [place] ] [ ] New medication written as a paper prescription [ ] No new medications given *Please follow up with your Dr. Parry with Urology, call for an appointment. Let them know you were seen in the Emergency Department and that we ask that you be seen in follow up. We will electronically transmit a record of today's note if your PCP is in our system *Return to Emergency Department if you should have any new, worsening or concerning symptoms, such as [fever greater than 101 F, shaking chills, worsening pain, persistent vomiting or other bothersome symptoms] You have been prescribed a short course of narcotic medications. These are potentially dangerous and addictive medications that should be used carefully. While on these medications you cannot drive or operate heavy machinery. Additionally, you cannot sign legal documents or perform any duties such as this. 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 Please understand that we cannot provide further refills of narcotics or controlled substances through the ED and your pain management will need to be through your Primary Care Provider Prescriptions: New hydrocodone-acetaminophen 5-325 mg tablet 1 tab PO Q4-6H PRN (Reason: pain) Qty: 10 0RF No Action ipratropium-albuterol 3 ML solution for nebulization 3 ml INH QIDP PRNQty: 60 1RF albuterol sulfate [ProAir HFA] 90 mcg/actuation HFA aerosol inhaler 2 puff INHALATION Q4H PRN (Reason: shortness of breath) Qty: 18 3RF fluticasone propion-salmeterol [Advair Diskus] 250-50 mcg/dose blister with device 1 inh INHALATION Q12H Qty: 60 5RF Paxlovid (EUA) 150 mg x 2- 100 mg tablet See Rx Instructions PO .COMPLEX Qty: 30 0RF Rx Instructions: take TWO 150 mg tablets of nirmatrelvir with ONE 100 mg tablet of ritonavir twice daily for 5 days PO Referrals: Brad Oliver MD [Primary Care Provider] - Rosendo Parry MD [Physician] -
[2021-12-23 20:55] VITALS: BP 141/80; PULSE 90; RESP 18; O2SAT 98
== END 2021-12-23 20:55 | disposition home or self-care (01) ==
PROVIDERS: Emergency Provider Emergency Medicine; PCP Family Medicine
DX: I86.1 Scrotal varices (principal); R30.0 Dysuria; N50.811 Right testicular pain
CPT/HCPCS: 76870; 87086; 99281; 99283

== ENCOUNTER 2022-01-01 21:04 | Emergency (ER) | payer BC, SELFPAY ==
[2022-01-01 21:11] VITALS: BP 133/84; PULSE 110; RESP 24; TEMP 37.2; O2SAT 93; BMI 52.3
--- NOTE | 2022-01-01 21:14 | DI.RAD.S_ITS ---
PROCEDURE: XR CHEST 2V INDICATIONS: shortness of breath TECHNIQUE: 2 views of the chest were acquired. COMPARISON: [facility], CR, XR CHEST 1V, 07/05/2019, 21:27. FINDINGS: Surgical changes and devices: None. Lungs and pleura: There are patchy indistinct airspace opacities in the right lung base. No pleural effusions or pneumothorax. Mediastinum: Mediastinal contours are normal. Heart size is normal. Bones and chest wall: No suspicious bony abnormalities. Soft tissues appear unremarkable. IMPRESSION: 1. Patchy indistinct opacities in the right lung base suggestive of pneumonia. Dictated by: Kosta Alvares M.D. on 01/01/2022 at 22:35 Approved by: Kosta Alvares M.D. on 01/01/2022 at 22:36
--- NOTE | 2022-01-01 22:13 | ED.SOB ---
HPI - SOB/Dyspnea General Chief Complaint: Shortness of Breath/Dyspnea Stated Complaint: HEAVY TO BREATH COUGH FEVER Time Seen by Provider: 01/01/22 21:16 Source: patient Mode of arrival: Ambulatory History of Present Illness HPI Narrative: 41-year-old male nonsmoker with history of asthma and hyperlipidemia presents for evaluation of fever, shortness of breath and cough for the past few days. He has had pneumonia in the past states this feels quite similar. I had seen him myself about 1 week ago for another diagnosis and he recently traveled to [place] and started getting sick on the way back. He has a dry hacking cough that is worse with deep breath. He denies any headache or blurred vision. He has no sore throat. He denies nausea, vomiting or diarrhea. Related Data Previous Rx's Medication Instructions Recorded ipratropium 0.5 mg-albuterol 3 mg 3 ml INH QIDP PRN #60 ea 06/20/16 (2.5 mg base)/3 mL nebulization soln albuterol sulfate 90 mcg/actuation 2 puff INHALATION Q4H PRN #18 g 07/06/20 aerosol inhaler (ProAir HFA) fluticasone 250 mcg-salmeterol 50 1 inh INHALATION Q12H #60 each 08/28/21 mcg/dose blistr powdr for inhalation (Advair Diskus) nirmatrelvir 300 mg (150 mg x See Rx Instructions PO .COMPLEX 12/07/21 2)-ritonavir 100 mg tablet (EUA) #30 tab (Paxlovid 300 mg () hydrocodone 5 mg-acetaminophen 325 1 tab PO Q4-6H PRN #10 tab 12/23/21 mg tablet amoxicillin 500 mg capsule 1,000 mg PO Q8H 5 Days #30 cap 01/01/22 benzonatate 200 mg capsule 200 mg PO BID PRN #20 cap 01/01/22 Allergies Allergy/AdvReac Type Severity Reaction Status Date / Time corn [CORN] Allergy Severe aslthma Verified 01/01/22 21:13 and Upper resp inflamamation. budesonide [From Symbicort] Allergy Unknown Verified 01/01/22 21:13 formoterol [From Symbicort] Allergy Unknown Verified 01/01/22 21:13 CAT DANDER Allergy Severe aslthma Uncoded 01/01/22 21:13 and Upper resp inflamamation. GRASS Allergy Severe aslthma Uncoded 01/01/22 21:13 and Upper resp inflamamation. Review of Systems Review of Systems Narrative: GENERAL: See HPI HEENT: Denies sinus pain, ear pain, sore throat, difficulty swallowing, dizziness. RESPIRATORY: See HPI CARDIOVASCULAR: Denies chest pain, palpitations, orthopnea, edema, GASTROINTESTINAL: Denies nausea, vomiting, abdominal pain, diarrhea, constipation, melena. : Denies dysuria, frequency, incontinence, hematuria, urinary retention. MUSCULOSKELETAL: denies weakness, joint pain, or bony pain SKIN: Denies rash, skin lesions, or other NEUROLOGIC: Denies weakness, headache, numbness, change in speech, confusion, seizures, incoordination. PSYCHIATRIC: No concerning psychosocial issues. 12 point review of systems is negative except for those stated above Patient History Medical History Asthma exacerbation Hip pain Low back pain Pancreatitis Surgical History History of cholecystectomy Social History marital status: number of children: 3 household members: spouse and children Smoking Status: Never smoker alcohol intake: never substance use type: does not use Smoking Status: Never smoker alcohol intake frequency: 0-2 drinks per day Substance Use Type: marijuana Exam Narrative Exam Narrative: GENERAL: [41 year old patient appears stated age. Well-developed patient, in mild distress. HEAD: Atraumatic. Normocephalic. EYES: Pupils equal round and reactive. Extraocular motions intact. No scleral icterus. No injection or drainage. ENT: Nose without bleeding, purulent drainage. Throat without erythema, tonsillar hypertrophy or exudate. Airway patent. NECK: Trachea midline. Non tender CARDIOVASCULAR: Regular rate and rhythm without murmurs, gallops, or rubs. RESPIRATORY: Faint crackles in right base, deep breath illicits cough. No significant work of breathing or hypoxemia GASTROINTESTINAL: Abdomen soft, non-tender, nondistended. EXTREMITIES: No edema or joint tenderness. BACK: Nontender without deformity or crepitance. No flank tenderness. NEURO: AOx3. SKIN: No rash or erythema of visible areas Initial Vital Signs Initial Vital Signs: Vital Signs Temperature 99.0 F 01/01/22 21:11 Pulse Rate 110 H 01/01/22 21:11 Respiratory Rate 24 01/01/22 21:11 Blood Pressure 133/84 01/01/22 21:11 Pulse Oximetry 93 01/01/22 21:11 Course Orders Ordered: Discontinued Medications Albuterol/Ipratropium (Albuterol/Ipratropium 3 Ml Ampul) 3 ml INH NOW ONE Stop: 01/01/22 22:22 Last Admin: 01/01/22 22:23 Dose: 3 ml Documented by: RAUDEL Sodium Chloride (Normal Saline 0.9%) 1,000 mls @ 1,000 mls/hr IV BOLUS ONE Stop: 01/01/22 23:17 Last Admin: 01/01/22 22:24 Dose: 1,000 mls/hr Documented by: MJ Ceftriaxone Sodium 2,000 mg/ (Sodium Chloride) 100 mls @ 200 mls/hr IV NOW ONE Stop: 01/01/22 22:46 Last Infusion: 01/01/22 23:52 Dose: 0 mls/hr Documented by: Admin: 01/01/22 23:08 Dose: 200 mls/hr Documented by: MJ Vital Signs Vital signs: Vital Signs - 8 hr 01/01/22 21:11 01/01/22 22:26 01/01/22 22:30 Temperature 99.0 F Pulse Rate 110 H 100 H Respiratory Rate 24 18 Blood Pressure 133/84 Pulse Oximetry 93 95 99 01/01/22 23:00 Temperature Pulse Rate 104 H Respiratory Rate Blood Pressure Pulse Oximetry MDM - SOB/Dyspnea Lab Data Result diagrams: 01/01/22 22:20 01/01/22 23:00 Labs: Lab Results 01/01/22 01/01/22 01/01/22 Range/Units 22:20 23:00 23:00 WBC 7.8 (4.5-11.0) X10^3/uL RBC 4.95 (4.5-5.9) X10^6/uL Hgb 14.3 (13.5-17.5) g/dL Hct 41.1 (41-53) % MCV 83.1 (80-100) fL MCH 28.9 (26-34) PG MCHC 34.7 (30-36) % RDW 14.0 (11.6-14.8) % Plt Count 190 (150-400) X10^3/uL Neut % (Auto) 65.0 (50-75) % Lymph % (Auto) 15.2 L (25-40) % Collin % (Auto) 11.8 (3-14) % Eos % (Auto) 6.7 H (2-4) % Baso % (Auto) 1.3 (0-2) % Neut # (Auto) 5100 (8245-7806) /uL Lymph # (Auto) 1200 (4752-5199) /uL Collin # (Auto) 900 (0-900) /uL Eos # (Auto) 500 H (0-450) /uL Baso # (Auto) 100 (0-100) /uL D-Dimer (<230) ng/mL Sodium 136 L (137-145) mmol/L Potassium 4.1 (3.4-5.1) mmol/L Chloride 101 (98-107) mmol/L Carbon Dioxide 23 (22-32) mmol/L BUN 10 (9-20) mg/dL Creatinine 0.91 (0.66-1.25) mg/dL Estimated GFR > 60 (>60) mL/min BUN/Creatinine Ratio 11.0 (6-22) Glucose 115 H (70-100) mg/dL Lactate 0.9 (0.7-2.1) mmol/L Calcium 9.1 (8.4-10.2) mg/dL Total Bilirubin 0.6 (0.2-1.3) mg/dL AST 39 (17-59) IU/L ALT 30 (<50) IU/L Alkaline Phosphatase 65 (38-126) U/L Total Creatine Kinase (55-170) U/L CK-MB (CK-2) (<2.37) ng/mL CK-MB (CK-2) Rel Index (1.5-5.0) % Troponin I (0.01-0.034) ng/mL NT-Pro-B Natriuret Pep (<125) pg/mL Total Protein 7.8 (6.3-8.2) g/dL Albumin 4.3 (3.5-5.0) g/dL Globulin 3.5 (1.7-4.1) g/dL Albumin/Globulin Ratio 1.2 (1.0-2.8) Procalcitonin (<0.5) ng/mL 01/01/22 01/01/22 Range/Units 23:00 23:00 WBC (4.5-11.0) X10^3/uL RBC (4.5-5.9) X10^6/uL Hgb (13.5-17.5) g/dL Hct (41-53) % MCV (80-100) fL MCH (26-34) PG MCHC (30-36) % RDW (11.6-14.8) % Plt Count (150-400) X10^3/uL Neut % (Auto) (50-75) % Lymph % (Auto) (25-40) % Collin % (Auto) (3-14) % Eos % (Auto) (2-4) % Baso % (Auto) (0-2) % Neut # (Auto) (5847-4433) /uL Lymph # (Auto) (4180-8726) /uL Collin # (Auto) (0-900) /uL Eos # (Auto) (0-450) /uL Baso # (Auto) (0-100) /uL D-Dimer < 200 (<230) ng/mL Sodium (137-145) mmol/L Potassium (3.4-5.1) mmol/L Chloride (98-107) mmol/L Carbon Dioxide (22-32) mmol/L BUN (9-20) mg/dL Creatinine (0.66-1.25) mg/dL Estimated GFR (>60) mL/min BUN/Creatinine Ratio (6-22) Glucose (70-100) mg/dL Lactate (0.7-2.1) mmol/L Calcium (8.4-10.2) mg/dL Total Bilirubin (0.2-1.3) mg/dL AST (17-59) IU/L ALT (<50) IU/L Alkaline Phosphatase (38-126) U/L Total Creatine Kinase 148 (55-170) U/L CK-MB (CK-2) < 0.22 (<2.37) ng/mL CK-MB (CK-2) Rel Index 0.1 L (1.5-5.0) % Troponin I < 0.012 (0.01-0.034) ng/mL NT-Pro-B Natriuret Pep 25 (<125) pg/mL Total Protein (6.3-8.2) g/dL Albumin (3.5-5.0) g/dL Globulin (1.7-4.1) g/dL Albumin/Globulin Ratio (1.0-2.8) Procalcitonin 0.09 (<0.5) ng/mL Imaging Data Chest x-ray: Radiologist's Impression: [address] [address] XRay Report Signed Patient: Donis Arrington MR#: [id number] : 1980 Acct:[id number] Age/Sex: 41 / M Date of Service: 01/01/22 Loc: ED Accession Number: [id number] ?? Procedure: XR chest 2V Ordering Provider: Tramaine Dalal D.O. PROCEDURE:? XR CHEST 2V ? INDICATIONS:? shortness of breath ? TECHNIQUE:? 2 views of the chest were acquired.? ? COMPARISON:? [facility], CR, XR CHEST 1V, 07/05/2019, 21:27. ? FINDINGS:? ? Surgical changes and devices:? None.? ? Lungs and pleura:? There are patchy indistinct airspace opacities in the right lung base. ?No pleural effusions or pneumothorax.? ? Mediastinum:? Mediastinal contours are normal.? Heart size is normal.? ? Bones and chest wall:? No suspicious bony abnormalities.? Soft tissues appear unremarkable.? ? IMPRESSION:? ? 1. Patchy indistinct opacities in the right lung base suggestive of pneumonia. ? ? Dictated by: Kosta Alvares M.D. on 01/01/2022 at 22:35 ? ? Approved by: Kosta Alvares M.D. on 01/01/2022 at 22:3 MDM Narrative Medical decision making narrative: Multiple etiologies for patient's symptoms considered including: [Pneumonia versus pulmonary embolism versus other Patient's symptoms improved over duration of stay with above-stated therapies. He has little work of breathing, no evidence of sepsis and no supplemental oxygen requirements Findings and discharge diagnosis discussed with patient/family followed by verbalization of understanding Return precautions discussed with patient/family whom verbalize understanding. Discharge Plan Departure Patient Disposition: Home Clinical Impression: Community acquired pneumonia Qualifiers: Laterality: right Lung location: lower lobe of lung Qualified Code(s): J18.9 - Pneumonia, unspecified organism Instructions: DI for Pneumonia -- Adult Activity Restrictions/Additional Instructions: *You have been diagnosed with [right lower lobe pneumonia] *What to do: *Please continue to take your regular medications as directed. [ x] New medication prescriptions sent to your pharmacy: [[facility] ] [ ] New medication written as a paper prescription [ ] No new medications given *Please follow up with your primary care provider in 2-3 days, call for an appointment. Let them know you were seen in the Emergency Department and that we ask that you be seen in follow up. We will electronically transmit a record of today's note if your PCP is in our system *If you do not have a primary care provider please contact the [facility] Resource line at [phone]. They will ask some questions about your medical history and help get you set up with a doctor in the community. *Return to Emergency Department if you should have any new, worsening or concerning symptoms, such as [fever greater than 101 F, shaking chills, worsening pain, persistent vomiting or other bothersome symptoms] Prescriptions: New amoxicillin 500 mg capsule 1,000 mg PO Q8H 5 Days Qty: 30 0RF benzonatate 200 mg capsule 200 mg PO BID PRN (Reason: cough) Qty: 20 0RF No Action ipratropium-albuterol 3 ML solution for nebulization 3 ml INH QIDP PRNQty: 60 1RF albuterol sulfate [ProAir HFA] 90 mcg/actuation HFA aerosol inhaler 2 puff INHALATION Q4H PRN (Reason: shortness of breath) Qty: 18 3RF fluticasone propion-salmeterol [Advair Diskus] 250-50 mcg/dose blister with device 1 inh INHALATION Q12H Qty: 60 5RF Paxlovid (EUA) 150 mg x 2- 100 mg tablet See Rx Instructions PO .COMPLEX Qty: 30 0RF Rx Instructions: take TWO 150 mg tablets of nirmatrelvir with ONE 100 mg tablet of ritonavir twice daily for 5 days PO hydrocodone-acetaminophen 5-325 mg tablet 1 tab PO Q4-6H PRN (Reason: pain) Qty: 10 0RF Referrals: Brad Oliver MD [Primary Care Provider] -
[2022-01-01] MEDS: ALBUTEROL/IPRATROPIUM 3 ML AMPUL INH (22:23)
[2022-01-01] MEDS: SODIUM CHLORIDE 0.9% 1,000 ML 1000 ML IV (22:24)
[2022-01-01 22:26] VITALS: O2SAT 95
[2022-01-01 22:27] LABS: Add Manual Diff / Slide Review NO; Basophils Absolute Auto 100 /uL (0-100); Basophils Percent Auto 1.3 % (0-2); Eosinophils Absolute Auto 500 /uL (0-450); Eosinophils Percent Auto 6.7 % (2-4); Hematocrit 41.1 % (41-53); Hemoglobin 14.3 g/dL (13.5-17.5); Lymphocytes Absolute Auto 1200 /uL (1100-4500); Lymphocytes Percent Auto 15.2 % (25-40); Mean Corpuscular HGB Conc 34.7 % (30-36); Mean Corpuscular Hemoglobin 28.9 PG (26-34); Mean Corpuscular Volume 83.1 fL (80-100); Monocytes Absolute Auto 900 /uL (0-900); Monocytes Percent Auto 11.8 % (3-14); Neutrophils Absolute Auto 5100 /uL (1500-7000); Platelet Count 190 X10^3/uL (150-400); Red Blood Cell Count 4.95 X10^6/uL (4.5-5.9); White Blood Cell Count 7.8 X10^3/uL (4.5-11.0)
[2022-01-01 22:30] VITALS: PULSE 100; RESP 18; O2SAT 99
[2022-01-01 22:59] LABS: Lactate (Lactic Acid) 0.9 mmol/L (0.7-2.1)
[2022-01-01 23:00] VITALS: PULSE 104
[2022-01-01] MEDS: cefTRIAXone 2,000 MG in SODIUM CHLORIDE 0.9% 100 ML 200 MG IV (23:08)
[2022-01-01 23:22] LABS: Creatine Kinase 148 U/L (55-170)
[2022-01-01 23:23] LABS: D Dimer < 200 ng/mL (<230)
[2022-01-01 23:35] LABS: NT-proBNP (BNP-Adult 18+) 25 pg/mL (<125); Troponin I < 0.012 ng/mL (0.01-0.034)
[2022-01-01 23:39] LABS: CKMB % Relative Index 0.1 % (1.5-5.0); Creatine Kinase MB < 0.22 ng/mL (<2.37)
[2022-01-01 23:40] LABS: Procalcitonin 0.09 ng/mL (<0.5)
[2022-01-02 00:41] LABS: Alanine Aminotransferase 30 IU/L (<50); Albumin 4.3 g/dL (3.5-5.0); Albumin Globulin Ratio 1.2 (1.0-2.8); Alkaline Phosphatase 65 U/L (38-126); Aspartate Aminotransferase 39 IU/L (17-59); Bilirubin Total 0.6 mg/dL (0.2-1.3); Blood Urea Nitrogen 10 mg/dL (9-20); Calcium 9.1 mg/dL (8.4-10.2); Carbon Dioxide 23 mmol/L (22-32); Chloride 101 mmol/L (98-107); Estimated Glomerular Filt Rate > 60 mL/min (>60); Globulin 3.5 g/dL (1.7-4.1); Glucose 115 mg/dL (70-100); HEMOLYSIS 38 (0-50); Potassium 4.1 mmol/L (3.4-5.1); Sodium 136 mmol/L (137-145); Total Protein 7.8 g/dL (6.3-8.2)
[2022-01-02 01:02] VITALS: BP 125/58; PULSE 95; RESP 17; O2SAT 94
== END 2022-01-02 01:17 | disposition home or self-care (01) ==
PROVIDERS: Emergency Provider Emergency Medicine; PCP Family Medicine
DX: J18.9 Pneumonia, unspecified organism (principal)
CPT/HCPCS: 36415; 71046; 80053; 82550; 82553; 83605; 83880; 84145; 84484; 85025; 85379; 93005; 94640; 96365; 99284; J0696

== ENCOUNTER → 2022-01-15 11:06 | Outpatient (CLI) | payer BC, SELFPAY ==
--- NOTE | 2022-01-15 11:08 | DI.RAD.S_ITS ---
PROCEDURE: XR CHEST 2V INDICATIONS: Pneumonia on CXR 01/01 TECHNIQUE: 2 views of the chest were acquired. COMPARISON: [facility], CR, XR CHEST 2V, 01/01/2022, 21:05. [facility], CR, XR CHEST 1V, 07/05/2019, 21:27. FINDINGS: Surgical changes and devices: None. Lungs and pleura: Minimal residual opacity in the right lower lobe. No pleural effusions or pneumothorax. Mediastinum: Mediastinal contours are normal. Heart size is normal. Bones and chest wall: No suspicious bony abnormalities. Soft tissues appear unremarkable. IMPRESSION: Minimal residual opacity in the right lower lobe. Findings most in keeping with improving pneumonia. Dictated by: Tyrese Mejía M.D. on 01/15/2022 at 11:38 Approved by: Tyrese Mejía M.D. on 01/15/2022 at 11:39
== END ==
PROVIDERS: PCP Family Medicine; Referring Provider Physician Assistant; Visit Provider Physician Assistant
DX: J18.9 Pneumonia, unspecified organism (principal); J45.909 Unspecified asthma, uncomplicated
CPT/HCPCS: 71046

== ENCOUNTER 2022-02-15 20:05 | Emergency (ER) | payer BC, SELFPAY ==
[2022-02-15 20:10] VITALS: BP 156/80; PULSE 70; RESP 18; TEMP 36.1; O2SAT 97; BMI 64.6
--- NOTE | 2022-02-15 21:54 | ED.GENADULT ---
HPI - General Adult General Chief complaint: Urogenital-Male Stated complaint: swollen and hard lt testicle Time Seen by Provider: 02/15/22 21:52 Source: patient Mode of arrival: Ambulatory History of Present Illness HPI narrative: 41-year-old gentleman seen by Urology this afternoon with complaints of swollen testicle. He was felt to have orchitis and was discharged home with Cipro, instructions to use ibuprofen for pain and told to come to the emergency department if symptoms were improving. Symptoms worsened he took neither the Cipro nor additional ibuprofen and presents to the emergency room for further evaluation. He is concerned about the pain radiating up into his abdomen. He has not been vomiting, he does not have any acute dysuria, no constipation, no fevers, chest pain palpitations headaches. Related Data Home Medications Medication Instructions Recorded Confirmed Saccharomyces boulardii 250 mg 250 mg PO BID 02/15/22 02/15/22 capsule (Daily Probiotic (S. boulardii)) cholecalciferol (vitamin D3) 10 10 mcg PO DAILY 02/15/22 02/15/22 mcg (400 unit) capsule Previous Rx's Medication Instructions Recorded ipratropium 0.5 mg-albuterol 3 mg 3 ml INH QIDP PRN #60 ea 06/20/16 (2.5 mg base)/3 mL nebulization soln albuterol sulfate 90 mcg/actuation 2 puff inhalation Q4H PRN 07/06/20 aerosol inhaler (ProAir HFA) shortness of breath #18 grams fluticasone 250 mcg-salmeterol 50 1 inh inhalation Q12H #60 ea 08/28/21 mcg/dose blistr powdr for inhalation (Advair Diskus) ciprofloxacin HCl 500 mg tablet 500 mg PO BID Orchitis #42 tabs 02/15/22 nystatin 100,000 unit/gram topical 1 applic topical TID #30 grams 02/15/22 powder prednisone 20 mg tablet 20 mg PO DAILY #5 tabs 02/15/22 tramadol 50 mg tablet 50 mg PO Q6H PRN pain #20 tabs 02/15/22 Allergies Allergy/AdvReac Type Severity Reaction Status Date / Time corn [CORN] Allergy Severe aslthma Verified 02/15/22 14:59 and Upper resp inflamamation. budesonide [From Symbicort] Allergy Unknown Verified 02/15/22 14:59 formoterol [From Symbicort] Allergy Unknown Verified 02/15/22 14:59 CAT DANDER Allergy Severe aslthma Uncoded 02/15/22 14:59 and Upper resp inflamamation. GRASS Allergy Severe aslthma Uncoded 02/15/22 14:59 and Upper resp inflamamation. Review of Systems Review of Systems Narrative: Remainder of complete review of systems is otherwise unremarkable except for that included in the HPI. Patient History Medical History Asthma exacerbation Hip pain Low back pain Pancreatitis Surgical History History of cholecystectomy Family History Father Cancer CAD in [place] artery Mother Eczema Social History marital status: number of children: 3 household members: spouse and children Smoking Status: Never smoker alcohol intake: never substance use type: does not use Type(s) of exercise: aerobic frequency: 1-2 times per week Smoking Status: Never smoker alcohol intake frequency: 0-2 drinks per day Substance Use Type: marijuana Exam Initial Vital Signs Initial Vital Signs: Vital Signs Temperature 97 F L 02/15/22 20:10 Pulse Rate 70 02/15/22 20:10 Respiratory Rate 18 02/15/22 20:10 Blood Pressure 156/80 H 02/15/22 20:10 Pulse Oximetry 97 02/15/22 20:10 Oxygen Delivery Method 02/15/22 20:10 General: Alert appropriate in no acute distress Respiratory: Able to speak in full sentences, no obvious respiratory distress Skin: No obvious rashes, warm and dry Neurologic: Grossly intact no obvious asymmetries or abnormalities Psych: appropriate insight and affect, cooperative Course Orders Ordered: Discontinued Medications Prednisone (Prednisone 20 Mg Tablet) 60 mg PO NOW ONE Stop: 02/15/22 22:27 Last Admin: 02/15/22 22:34 Dose: 60 mg Documented By: AT Tramadol HCl (Tramadol 50 Mg Tablet) 50 mg PO NOW ONE Stop: 02/15/22 22:27 Last Admin: 02/15/22 22:34 Dose: 50 mg Documented By: AT Vital Signs Vital signs: Vital Signs - 8 hr 02/15/22 20:10 Temperature 97 F L Pulse Rate 70 Respiratory Rate 18 Blood Pressure 156/80 H Pulse Oximetry 97 Oxygen Delivery Method Room Air Medical Decision Making [facility] Narrative Medical decision making narrative: 41-year-old gentleman with complaints of increasing pain from his urology diagnosed orchitis. Due to emergency department volumes he is seen and examined in the hallway chair so genital exam is not done. General exam was performed less than 6 hours earlier by his urologist. We discussed options for pain control. Finds that narcotics are not typically helpful. In the past steroids have actually been most helpful with previous pain. 800 mg of ibuprofen did not provide much pain relief. We negotiated 60mg of prednisone in the emergency department along with a single dose of tramadol. Will give him 5 additional days of 20 mg of prednisone. If he finds that tramadol is helpful he can fill a prescription for this. He has a full prescription of Cipro and his 1st dose was taken in the emergency department. Questions were answered he was reassured and felt that his concerns were addressed and was comfortable at home discharge. Discharge Plan Departure Patient Disposition: Home Clinical Impression: Acute orchitis Instructions: Orchitis Activity Restrictions/Additional Instructions: Thank you for coming in today We had a nice discussion regarding pain control, I appreciate that 800 mg of ibuprofen has not been effective. You have also said that narcotics typically are not that helpful but steroids can be helpful. Knowing that, I have given you 60 mg of prednisone in the emergency department and will heavy complete 4 additional days of 20 mg of prednisone to help with pain. To this you can add Tylenol. Adding ibuprofen probably will not offer much additional benefit to the steroid. In the emergency department I gave you a dose of tramadol. If you found that this was helpful you can fill the prescription. If it was not helpful, do not feel a prescription for medication that is not effective Prescriptions have been electronically transmitted to [facility] in [place] Do start your Cipro immediately and do complete the course as prescribed by Dr. Parry. If you find that you are getting worse or develop any new symptoms, please feel free to return to the emergency department for further evaluation. Prescriptions: New prednisone 20 mg tablet 20 mg PO DAILY Qty: 5 0RF tramadol 50 mg tablet 50 mg PO Q6H PRN (Reason: pain) Qty: 20 0RF No Action ipratropium-albuterol 3 ML solution for nebulization 3 ml INH QIDP PRNQty: 60 1RF albuterol sulfate [ProAir HFA] 90 mcg/actuation HFA aerosol inhaler 2 puff INHALATION Q4H PRN (Reason: shortness of breath) Qty: 18 3RF fluticasone propion-salmeterol [Advair Diskus] 250-50 mcg/dose blister with device 1 inh INHALATION Q12H Qty: 60 5RF Saccharomyces boulardii [Daily Probiotic (S. boulardii)] 250 mg capsule 250 mg PO BID cholecalciferol (vitamin D3) 10 mcg (400 unit) capsule 10 mcg PO DAILY ciprofloxacin HCl 500 mg tablet 500 mg PO BID Qty: 42 1RF nystatin 100,000 unit/gram powder 1 applic topical TID Qty: 30 2RF Referrals: Brad Oliver MD [Primary Care Provider] - Visit Report Forms: Patient Portal/API
[2022-02-15] MEDS: TRAMADOL 50 MG TABLET PO (22:34)
[2022-02-15] MEDS: predniSONE 20 MG TABLET 60 MG PO (22:34)
== END 2022-02-15 22:40 | disposition home or self-care (01) ==
PROVIDERS: Emergency Provider Emergency Medicine; PCP Family Medicine
DX: N45.2 Orchitis (principal); B37.2 Candidiasis of skin and nail; N50.812 Left testicular pain; E66.01 Morbid (severe) obesity due to excess calories; R39.9 Unspecified symptoms and signs involving the genitourinary system; N42.9 Disorder of prostate, unspecified
CPT/HCPCS: 51798; 81002; 99283

== ENCOUNTER → 2022-02-28 06:29 | Outpatient (CLI) | payer BC, SELFPAY ==
--- NOTE | 2022-02-28 06:30 | DI.US.S_ITS ---
PROCEDURE: US SCROTUM INDICATIONS: Right testicular enlargement question orchitis TECHNIQUE: Real-time scanning was performed of the scrotum and testicles, with image documentation. Color and pulse Doppler interrogation was performed of both testicles. COMPARISON: [facility], , US SCROTUM, 12/23/2021, 19:41. FINDINGS: Right: Testicle is normal in size at 3.9 x 3.2 x 2.2 cm, and homogenous in echotexture. Epididymis is normal in overall size and morphology. Small hydrocele. No varicoceles. Overlying scrotal skin is normal in thickness. Left: Testicle is normal in size at 3.2 x 2.8 x 2.5 cm, and homogeneous in echotexture. Epididymis is normal in overall size and morphology. Moderate hydrocele with multiple septations. Left varicocele. Doppler: Color and pulse Doppler demonstrate normal and symmetric arterial flow in both testicles. IMPRESSION: Left varicocele. Moderate left hydrocele with multiple septations. Normal testes bilaterally. Normal epididymi. Dictated by: David Patel M.D. on 02/28/2022 at 9:04 Approved by: David Patel M.D. on 02/28/2022 at 9:10
== END ==
PROVIDERS: PCP Family Medicine; Referring Provider Urology; Visit Provider Urology
DX: I86.1 Scrotal varices (principal); N43.3 Hydrocele, unspecified
CPT/HCPCS: 76870

== ENCOUNTER → 2022-05-16 09:15 | Outpatient (CLI) | payer BC, SELFPAY ==
--- NOTE | 2022-05-16 09:16 | DI.US.S_ITS ---
PROCEDURE: US SCROTUM INDICATIONS: Left hemiscrotal enlargement history of orchitis TECHNIQUE: Real-time scanning was performed of the scrotum and testicles, with image documentation. Color and pulse Doppler interrogation was performed of both testicles. COMPARISON: [facility], , US SCROTUM, 02/28/2022, 8:02. FINDINGS: Right: Testicle is normal in size at 4.1 x 2.8 x 2.2 cm, and homogenous in echotexture. Epididymis is normal in overall size. Mildly heterogeneous right epididymal echotexture is seen . No hydroceles or varicoceles. Mild right scrotal wall thickening with increased vascularity is also seen. Left: Testicle is normal in size at 3.4 x 2.9 x 2.6 cm, and homogeneous in echotexture. Thickened epididymal head and body is seen. Heterogeneous left epididymal echotexture is also noted. There is no left-sided hydrocele or varicoceles. Significantly thickened left scrotal wall with increased vascularity measures up to 13.2 mm in thickness. Doppler: Color and pulse Doppler demonstrate increased arterial flow in left testes and left epididymis and mildly increased arterial flow in right testes and right epididymis. IMPRESSION: 1. Finding is suggestive of left-sided orchitis and epididymitis with significant cellulitis in left scrotal wall. No hydrocele or varicocele is seen. 2. Possible mild right-sided orchitis and epididymitis with mild cellulitis involving right scrotal wall. Dictated by: Ortega Whyte M.D. on 05/16/2022 at 11:59 Approved by: Ortega Whyte M.D. on 05/16/2022 at 12:03
== END ==
PROVIDERS: PCP Family Medicine; Referring Provider Urology; Visit Provider Urology
DX: N49.2 Inflammatory disorders of scrotum (principal)
CPT/HCPCS: 76870

== ENCOUNTER 2022-07-12 23:14 | Emergency (ER) | payer BC, SELFPAY ==
[2022-07-12 23:24] VITALS: BP 165/86; PULSE 82; RESP 16; TEMP 36.6; O2SAT 97; BMI 52.3
--- NOTE | 2022-07-12 23:30 | DI.RAD.S_ITS ---
PROCEDURE: XR CHEST 1V INDICATIONS: chest pain TECHNIQUE: One view of the chest was acquired. COMPARISON: [facility], CR, XR CHEST 2V, 01/15/2022, 11:02. FINDINGS: Surgical changes and devices: None. Lungs and pleura: Lungs demonstrate no acute consolidation. No pleural effusions or pneumothorax. Mediastinum: Mediastinal contours appear normal. Heart size is normal. Bones and chest wall: No suspicious bony lesions. Overlying soft tissues appear unremarkable. IMPRESSION: 1. No definite acute cardiopulmonary disease. Dictated by: Kosta Alvares M.D. on 07/13/2022 at 1:06 Approved by: Kosta Alvares M.D. on 07/13/2022 at 1:09
[2022-07-12 23:52] LABS: Add Manual Diff / Slide Review NO; Basophils Absolute Auto 100 /uL (0-100); Basophils Percent Auto 1.5 % (0-2); Eosinophils Absolute Auto 500 /uL (0-450); Eosinophils Percent Auto 5.5 % (2-4); Lymphocytes Absolute Auto 2400 /uL (1100-4500); Lymphocytes Percent Auto 24.1 % (25-40); Mean Corpuscular HGB Conc 33.3 % (30-36); Mean Corpuscular Hemoglobin 28.1 PG (26-34); Mean Corpuscular Volume 84.5 fL (80-100); Monocytes Absolute Auto 1000 /uL (0-900); Monocytes Percent Auto 10.3 % (3-14); Neutrophils Absolute Auto 5800 /uL (1500-7000); Neutrophils Percent Auto 58.6 % (50-75); Platelet Count 234 X10^3/uL (150-400); Red Blood Cell Count 4.97 X10^6/uL (4.5-5.9); Red Cell Distribution Width 13.9 % (11.6-14.8)
[2022-07-13 00:11] LABS: Alanine Aminotransferase 29 IU/L (<50); Albumin 4.3 g/dL (3.5-5.0); Albumin Globulin Ratio 1.3 (1.0-2.8); Alkaline Phosphatase 90 U/L (38-126); Aspartate Aminotransferase 24 IU/L (17-59); Bilirubin Total 0.3 mg/dL (0.2-1.3); Blood Urea Nitrogen 12 mg/dL (9-20); Calcium 9.3 mg/dL (8.4-10.2); Carbon Dioxide 29 mmol/L (22-32); Chloride 101 mmol/L (98-107); Creatine Kinase 107 U/L (55-170); Estimated Glomerular Filt Rate > 60 mL/min (>60); Globulin 3.3 g/dL (1.7-4.1); Glucose 127 mg/dL (70-100); HEMOLYSIS < 15 (0-50); Lipase 40 U/L (23-300); Sodium 140 mmol/L (137-145); Total Protein 7.6 g/dL (6.3-8.2)
[2022-07-13 00:22] LABS: Troponin I < 0.012 ng/mL (0.01-0.034)
[2022-07-13 00:27] LABS: CKMB % Relative Index 0.8 % (1.5-5.0); Creatine Kinase MB 0.86 ng/mL (<2.37)
[2022-07-13 01:33] LABS: Influenza A - CEPHEID Flu A NEGATIVE (NEGATIVE); Influenza B - CEPHEID Flu B NEGATIVE (NEGATIVE); Respiratory Syncytial Virus Negative (Negative)
[2022-07-13 01:37] LABS: COVID-19 CEPHEID 4-PLEX PCR Negative (Negative)
--- NOTE | 2022-07-13 02:02 | ED_ITS ---
HPI - Chest Pain General Chief Complaint: Chest Pain Stated Complaint: pneumonia Time Seen by Provider: 07/13/22 00:35 Source: patient Mode of arrival: Ambulatory Limitations: no limitations History of Present Illness HPI narrative: 41-year-old gentleman with moderate persistent asthma using Advair once daily when well b.i.d. with upper respiratory infection presents with persistent cough after recent presumed influenza a infection. Began having severe fevers moderate cough and body aches proximally 3 weeks ago those symptoms resolved. He then noted he was continuing to have coughing and in the past has always been diagnosed with pneumonia after a viral infection. Notes that he has been given a Z-Jc a number of times and he always requires a 2nd 1 before he actually improves. He went to urgent care about a week ago and was prescribed a Z-Jc and comes in today because he feels that he has not improved and is still coughing. Notes that it is somewhat worse when he lays that. Does have a history of chronic lower extremity edema and consistently wears compression socks notes that this has not worsened at all. No longer having fevers or chills. The cough is dry but tending to keep him up at night. Has increased his Advair to b.i.d. and has not felt that he needs his MDI much. He describes no palpitations, headache, abdominal pain, vomiting, diarrhea. Related Data Home Medications Medication Instructions Recorded Confirmed Saccharomyces boulardii 250 mg 250 mg PO BID 02/15/22 07/03/22 capsule (Daily Probiotic (S. boulardii)) cholecalciferol (vitamin D3) 10 10 mcg PO DAILY 02/15/22 07/03/22 mcg (400 unit) capsule Previous Rx's Medication Instructions Recorded ipratropium 0.5 mg-albuterol 3 mg 3 ml INH QIDP PRN #60 ea 06/20/16 (2.5 mg base)/3 mL nebulization soln fluticasone 250 mcg-salmeterol 50 1 inh inhalation Q12H #180 ea 05/16/22 mcg/dose blistr powdr for inhalation (Advair Diskus) azithromycin 250 mg tablet See Rx Instructions PO .COMPLEX #6 07/03/22 tabs prednisone 20 mg tablet 20 mg PO DAILY #5 tabs 07/13/22 Allergies Allergy/AdvReac Type Severity Reaction Status Date / Time ciprofloxacin Allergy Severe Cramping Verified 07/03/22 10:43 of the Muscles corn [CORN] Allergy Severe aslthma Verified 07/03/22 10:43 and Upper resp inflamamation. budesonide [From Symbicort] Allergy Unknown Verified 07/03/22 10:43 formoterol [From Symbicort] Allergy Unknown Verified 07/03/22 10:43 CAT DANDER Allergy Severe aslthma Uncoded 07/03/22 10:43 and Upper resp inflamamation. GRASS Allergy Severe aslthma Uncoded 07/03/22 10:43 and Upper resp inflamamation. Review of Systems Review of Systems Narrative: Remainder of complete review of systems is otherwise unremarkable except for that included in the HPI. Patient History Medical History Asthma exacerbation Hip pain Left hydrocele Low back pain Lower urinary tract symptoms Pancreatitis Surgical History History of cholecystectomy Family History Father Cancer CAD in lummi artery Mother Eczema Social History marital status: number of children: 3 household members: spouse and children Smoking Status: Never smoker alcohol intake: never substance use type: does not use Type(s) of exercise: aerobic frequency: 1-2 times per week Smoking Status: Never smoker alcohol intake frequency: 0-2 drinks per day Substance Use Type: marijuana Exam Initial Vital Signs Initial Vital Signs: Vital Signs Temperature 97.8 F 07/12/22 23:24 Pulse Rate 82 07/12/22 23:24 Respiratory Rate 16 07/12/22 23:24 Blood Pressure 165/86 H 07/12/22 23:24 Pulse Oximetry 97 07/12/22 23:24 Oxygen Delivery Method 07/12/22 23:24 General: Healthy appearing, in no acute distress. Able to give a complete and coherent history. Well-nourished well-developed HEENT: Moist mucous membranes, normal sclera with reactive pupils, Neck: No JVD, supple Respiratory: Dry cough but Lungs are clear to auscultation, no wheezing no rales no rhonchi. Full and symmetrical air movement Cardiac: Regular rate and rhythm no murmurs no bruits Abdomen: Soft, nontender, good bowel tones, no flank pain Skin: Warm and dry, no rashes Neurologic: Grossly neurologically intact with no obvious asymmetries or abnormalities Extremities: No trauma, well perfused Psych: Cooperative, appropriate insight and affect Course Orders Ordered: ED Orders 07/12/22 23:30 XR chest 1V Stat EKG-12 Lead Stat 07/12/22 23:36 Complete Blood Count AUTO DIFF Stat Comprehensive Metabolic Panel Stat Lipase Stat Troponin & CK Cardiac Panel Stat 07/13/22 00:37 Covid-19 + FLU A/B + RSV - PCR Stat Vital Signs Vital signs: Vital Signs - 8 hr 07/12/22 23:24 Temperature 97.8 F Pulse Rate 82 Respiratory Rate 16 Blood Pressure 165/86 H Pulse Oximetry 97 Oxygen Delivery Method Room Air MDM - Chest Pain Lab Data Result diagrams: 07/12/22 23:36 07/12/22 23:36 Labs: Lab Results 07/12/22 07/12/22 07/13/22 Range/Units 23:36 23:36 00:37 WBC 10.0 (4.5-11.0) X10^3/uL RBC 4.97 (4.5-5.9) X10^6/uL Hgb 14.0 (13.5-17.5) g/dL Hct 42.0 (41-53) % MCV 84.5 (80-100) fL MCH 28.1 (26-34) PG MCHC 33.3 (30-36) % RDW 13.9 (11.6-14.8) % Plt Count 234 (150-400) X10^3/uL Neut % (Auto) 58.6 (50-75) % Lymph % (Auto) 24.1 L (25-40) % [place] % (Auto) 10.3 (3-14) % Eos % (Auto) 5.5 H (2-4) % Baso % (Auto) 1.5 (0-2) % Neut # (Auto) 5800 (9736-4049) /uL Lymph # (Auto) 2400 (7426-6185) /uL [place] # (Auto) 1000 H (0-900) /uL Eos # (Auto) 500 H (0-450) /uL Baso # (Auto) 100 (0-100) /uL Sodium 140 (137-145) mmol/L Potassium 4.0 (3.4-5.1) mmol/L Chloride 101 (98-107) mmol/L Carbon Dioxide 29 (22-32) mmol/L BUN 12 (9-20) mg/dL Creatinine 0.86 (0.66-1.25) mg/dL Estimated GFR > 60 (>60) mL/min BUN/Creatinine Ratio 14.0 (6-22) Glucose 127 H (70-100) mg/dL Calcium 9.3 (8.4-10.2) mg/dL Total Bilirubin 0.3 (0.2-1.3) mg/dL AST 24 (17-59) IU/L ALT 29 (<50) IU/L Alkaline Phosphatase 90 (38-126) U/L Total Creatine Kinase 107 (55-170) U/L CK-MB (CK-2) 0.86 (<2.37) ng/mL CK-MB (CK-2) Rel Index 0.8 L (1.5-5.0) % Troponin I < 0.012 (0.01-0.034) ng/mL Total Protein 7.6 (6.3-8.2) g/dL Albumin 4.3 (3.5-5.0) g/dL Globulin 3.3 (1.7-4.1) g/dL Albumin/Globulin Ratio 1.3 (1.0-2.8) Lipase 40 (23-300) U/L SARS-CoV-2 (PCR) Negative (Negative) Influenza A (RT-PCR) Flu a negative (NEGATIVE) Influenza B (RT-PCR) Flu b negative (NEGATIVE) RSV (PCR) Negative (Negative) Imaging Data Chest x-ray: Radiologist's Impression: FINDINGS:? ? Surgical changes and devices:? None.? ? Lungs and pleura:? Lungs demonstrate no acute consolidation.? No pleural effusions or pneumothorax.? ? Mediastinum:? Mediastinal contours appear normal.? Heart size is normal.? ? Bones and chest wall:? No suspicious bony lesions.? Overlying soft tissues appear unremarkable.? ? IMPRESSION:? ? 1. No definite acute cardiopulmonary disease.? ? ? Dictated by: Kosta Alvares M.D. on 07/13/2022 at 1:06 ? ECG Data Interpretation: Sinus rhythm rate of 79 Normal intervals, normal axis No acute ischemic changes MDM Narrative Medical decision making narrative: 41-year-old gentleman with asthma with recent presumed influenza a viral syndrome and persistent cough. He is had 5 days of azithromycin with minimal change. Chest x-ray is unremarkable, clinical exam does not show wheezing nor consolidated findings to suggest subsequent bacterial pneumonia. No evidence of cardiomyopathy, pericarditis or myocarditis. No pleural effusions or spontan eous pneumothorax. No evidence of acute coronary syndrome. I suspect that he simply is having persistent cough variant asthma after his viral illness. Given his prior history of needing to courses of Z-Jc after every viral infection I suspect this is what happened previously as well. Clearly went over findings and reasons I do not think that he has a bacterial etiology and why antibiotics are not indicated at this time. Expresses understanding. We will give him Solu-Medrol here in the emergency department and an additional 5 days of prednisone as well as have him continuing his Advair and MDI and see if that helps with the overall cough. He expresses understanding questions are answered and he is safe for home discharge Discharge Plan Departure Patient Disposition: Home Clinical Impression: Cough variant asthma Instructions: DI for Asthma -- Adult Activity Restrictions/Additional Instructions: Thank you for coming in today. Your illness a couple of weeks ago sounds very much like influenza A. After this particularly in people who have asthma, the airway still stay inflamed and cause a cough that lasts for an additional 2 weeks. With your history of needing antibiotics for 2 weeks after prior viral illnesses, I am wondering if this may have been a persistent problem for you. Your lab workup was very reassuring. Chest x-ray and clinical exam do not suggest a post viral pneumonia. There is no evidence of elevated white blood cell count. Similarly I am not finding anything to suggest pericarditis, myocarditis pericardial effusion after your influenza infection. There is no evidence of pulmonary emboli, collapsed lung or other life-threatening abnormalities. At this time I am going to suggest that we do not add additional antibiotics. The azithromycin that you have already completed is actually remaining in your body for 10 full days and should be effective for any post viral bacterial upper respiratory infection. I am going to suggest that we add steroids to see if reducing the overall inflammation getsrid of the cough more effectively. You have been given 60 mg of Solu-Medrol in the emergency department and a prescription for 5 days of 20 mg of prednisone to continue. Please continue to use the fluticasone/salmeterol inhaler twice a day and your metered-dose inhaler as needed for persistent cough or wheezing. A prescription was electronically transmitted to [facility] in [place] If you find that you are getting worse or develop any new symptoms, please feel free to return to the emergency department for further evaluation. Prescriptions: New prednisone 20 mg tablet 20 mg PO DAILY Qty: 5 0RF No Action azithromycin 250 mg tablet See Rx Instructions PO .COMPLEX Qty: 6 0RF Rx Instructions: For 250 mg dose pack: take 500 mg today (day 1), then 250 mg for 4 days (days 2-5) PO ipratropium-albuterol 3 ML solution for nebulization 3 ml INH QIDP PRNQty: 60 1RF fluticasone propion-salmeterol [Advair Diskus] 250-50 mcg/dose blister with device 1 inh INHALATION Q12H Qty: 180 1RF Rx Instructions: faxed to [email or web address] at [address] [id number] [place] [address], fax #[phone] Saccharomyces boulardii [Daily Probiotic (S. boulardii)] 250 mg capsule 250 mg PO BID cholecalciferol (vitamin D3) 10 mcg (400 unit) capsule 10 mcg PO DAILY Referrals: Brad Oliver MD [Primary Care Provider] -
[2022-07-13] MEDS: methylPREDNISolone 125 MG/2 ML VIAL 60 MG IV (02:22)
[2022-07-13 02:38] VITALS: BP 132/78; PULSE 62; RESP 16; O2SAT 99
== END 2022-07-13 02:39 | disposition home or self-care (01) ==
PROVIDERS: Emergency Provider Emergency Medicine; PCP Family Medicine
DX: J45.991 Cough variant asthma (principal); Z20.822 Contact with and (suspected) exposure to COVID-19
CPT/HCPCS: 0241U; 36415; 71045; 80053; 82550; 82553; 83690; 84484; 85025; 93005; 96374; 99284; J2930

== ENCOUNTER → 2022-10-10 06:53 | Outpatient (CLI) | payer BC, SELFPAY ==
--- NOTE | 2022-10-10 06:54 | DI.US.S_ITS ---
PROCEDURE: US SCROTUM INDICATIONS: LEFT TESTICLE SWELLING. HISTORY OF REOCCURENT ORCHITIS TECHNIQUE: Real-time scanning was performed of the scrotum and testicles, with image documentation. Color and pulse Doppler interrogation was performed of both testicles. COMPARISON: [facility], , US SCROTUM, 05/16/2022, 9:39. FINDINGS: Right: Testicle is normal in size at 3.9 x 2.6 x 2.2 cm, and heterogeneous in echotexture. Epididymis is normal in overall size and morphology. No hydrocele or varicoceles. Overlying scrotal skin is normal in thickness. Left: Testicle is normal in size at 3.3 x 2.7 x 2.6 cm, and heterogeneous in echotexture. Epididymis is enlarged in size and is diffusely heterogeneous in echotexture. No hydrocele or varicoceles. Left epididymal head cyst is also seen measures 1.3 x 0.9 x 0.5 cm in size. Left scrotal wall thickening is seen measures up to 6 mm in thickness. Mildly increased vascularity is also seen. Doppler: Color and pulse Doppler demonstrate normal and symmetric arterial flow in both testicles. IMPRESSION: 1. Bilateral testes show mildly heterogeneous echotexture which may be related to patient's history of recurrent orchitis. No discrete testicular lesion is seen. No evidence of testicular torsion. 2. Suggestion of left-sided epididymitis and left scrotal wall cellulitis. No significant hydrocele. Left epididymal head cyst as above. Normal appearing right epididymis. Dictated by: Ortega Whyte M.D. on 10/10/2022 at 12:46 Approved by: Ortega Whyte M.D. on 10/10/2022 at 12:49
--- NOTE | 2022-10-10 07:52 | DI.CT.S_ITS ---
PROCEDURE: CT ABDOMEN PELVIS W CON INDICATIONS: Abdominal pain new TECHNIQUE: After the administration of intravenous contrast, axial sections acquired from the lung bases to the pubic symphysis. Coronal and sagittal reformats were performed. For radiation dose reduction, the following was used: automated exposure control, adjustment of mA and/or kV according to patient size. COMPARISON: None. FINDINGS: Image quality: Excellent. Lung bases: Lung bases are clear. Heart size is normal. Solid organs: Liver: The liver has no mass or intrahepatic biliary ductal dilatation. The portal vein and hepatic veins are patent. Biliary: Status post cholecystectomy. Pancreas: The pancreas has an appearance within normal limits, however may have very subtle edema. No significant surrounding inflammation Spleen: Normal size. There are no masses. Adrenals: No hypertrophy or nodules. Kidneys: No obstructive calculus or hydronephrosis. No solid mass. Posterolateral to the right kidney there is a 4.3 cm cyst which does not abut the kidney and has a fat plane between the liver. Peritoneum and bowel: The distal esophagus and stomach are normal. The small bowel has a normal caliber and appearance. The terminal ileum is normal. The large bowel has a normal caliber and appearance. The appendix is normal. No free fluid or air. Nodes and vessels: No retroperitoneal or mesenteric adenopathy by size criteria. Aorta and inferior vena cava are normal in size. Miscellaneous: No abdominal wall mass or hernia. PELVIS: Genitourinary: The bladder has no wall thickening or mass. No bladder calcifications. Bones: No suspicious bony lesions. No vertebral body compression fractures. IMPRESSION: 1. No acute abdominal or pelvic abnormality. However the pancreas may have questionable subtle edema. Please correlate with lipase if not already performed. If lipase is normal, the pancreas is within normal limits. 2. Isolated benign appearing 4.3 cm cyst in the right pararenal space Dictated by: Esdras Dang M.D. on 10/10/2022 at 10:11 Approved by: Esdras Dang M.D. on 10/10/2022 at 10:19
== END ==
PROVIDERS: PCP Family Medicine; Referring Provider Urology; Visit Provider Urology
DX: R93.812 Abnormal radiologic findings on diagnostic imaging of left testicle (principal); N50.89 Other specified disorders of the male genital organs; R10.9 Unspecified abdominal pain; Z90.49 Acquired absence of other specified parts of digestive tract
CPT/HCPCS: 74177; 76870; Q9967

== ENCOUNTER → 2022-11-17 12:01 | Outpatient (CLI) | payer BC, SELFPAY ==
[2022-11-17 12:49] LABS: Lipase 28 U/L (23-300)
== END ==
PROVIDERS: PCP Family Medicine; Referring Provider Urology; Visit Provider Urology
DX: Z87.19 Personal history of other diseases of the digestive system (principal)
CPT/HCPCS: 36415; 83690

== ENCOUNTER → 2022-12-06 13:06 | Outpatient (CLI) | payer BC, SELFPAY ==
[2022-12-06 13:38] LABS: Add Manual Diff / Slide Review NO; Basophils Absolute Auto 0 /uL (0-100); Basophils Percent Auto 0.3 % (0-2); Eosinophils Absolute Auto 400 /uL (0-450); Eosinophils Percent Auto 5.6 % (2-4); Hematocrit 42.5 % (41-53); Hemoglobin 14.6 g/dL (13.5-17.5); Lymphocytes Absolute Auto 1600 /uL (1100-4500); Lymphocytes Percent Auto 20.6 % (25-40); Mean Corpuscular HGB Conc 34.4 % (30-36); Mean Corpuscular Volume 84.2 fL (80-100); Monocytes Absolute Auto 800 /uL (0-900); Monocytes Percent Auto 10.1 % (3-14); Neutrophils Absolute Auto 5000 /uL (1500-7000); Neutrophils Percent Auto 63.4 % (50-75); Platelet Count 210 X10^3/uL (150-400); Red Blood Cell Count 5.04 X10^6/uL (4.5-5.9); Red Cell Distribution Width 13.8 % (11.6-14.8); White Blood Cell Count 7.8 X10^3/uL (4.5-11.0)
[2022-12-06 14:34] LABS: Alanine Aminotransferase 30 IU/L (<50); Albumin 4.4 g/dL (3.5-5.0); Albumin Globulin Ratio 1.5 (1.0-2.8); Alkaline Phosphatase 78 U/L (38-126); Aspartate Aminotransferase 24 IU/L (17-59); BUN Creatinine Ratio 14.4 (6-22); Bilirubin Total 0.5 mg/dL (0.2-1.3); Blood Urea Nitrogen 13 mg/dL (9-20); Calcium 9.5 mg/dL (8.4-10.2); Carbon Dioxide 28 mmol/L (22-32); Chloride 100 mmol/L (98-107); Cholesterol 200 mg/dL (140-199); Estimated Glomerular Filt Rate > 60 mL/min (>60); Glucose 87 mg/dL (70-100); HDL Cholesterol 43 mg/dL (40-60); HEMOLYSIS < 15 (0-50); LDL Cholesterol Calculated 138 mg/dL (<100); Potassium 4.2 mmol/L (3.4-5.1); Sodium 137 mmol/L (137-145); Total Protein 7.4 g/dL (6.3-8.2); Triglycerides 93 mg/dL (35-150)
[2022-12-06 15:05] LABS: TSH w/ Reflex to FT4 2.11 uIU/mL (0.47-4.68)
[2022-12-06 15:06] LABS: Testosterone 243 ng/dL (132-813)
[2022-12-06 15:23] LABS: Vitamin B12 299 pg/mL (239-931)
[2022-12-06 15:24] LABS: Urine N gonorrhoeae NOT DETECTED
[2022-12-06 16:01] LABS: Urine Chlamydia NOT DETECTED
[2022-12-07 09:34] LABS: Labcorp Hemoglobin (Hb) A1c 6.1 % (4.8-5.6); RPR Screen Non Reactive (Non Reactive)
[2022-12-07 15:46] LABS: Hepatitis B Surface Antigen NEGATIVE s/c (NEGATIVE)
== END ==
PROVIDERS: PCP Family Medicine; Referring Provider Physician Assistant; Visit Provider Physician Assistant
DX: E78.5 Hyperlipidemia, unspecified (principal); R89.8 Other abnormal findings in specimens from other organs, systems and tissues; R73.01 Impaired fasting glucose; E53.8 Deficiency of other specified B group vitamins; E66.01 Morbid (severe) obesity due to excess calories; R53.83 Other fatigue; Z01.84 Encounter for antibody response examination; Z72.51 High risk heterosexual behavior
CPT/HCPCS: 36415; 80053; 80061; 82607; 83036; 84403; 84443; 85025; 86592; 87340; 87491; 87522; 87591

== ENCOUNTER → 2023-01-01 17:15 | Outpatient (CLI) | payer BC, SELFPAY ==
[2023-01-03 06:04] LABS: x Labcorp Estim. Avg Glu (eAG) 123 mg/dL (.); x Labcorp Hemoglobin A1c 5.9 % (4.8-5.6)
== END ==
PROVIDERS: PCP Family Medicine; Referring Provider Physician Assistant; Visit Provider Physician Assistant
DX: Z72.51 High risk heterosexual behavior (principal); E78.5 Hyperlipidemia, unspecified
CPT/HCPCS: 36415; 83036

== ENCOUNTER → 2023-03-09 11:23 | Outpatient (CLI) | payer BC, SELFPAY ==
[2023-03-09 14:34] LABS: Urine N gonorrhoeae NOT DETECTED
[2023-03-09 14:35] LABS: Urine Chlamydia NOT DETECTED
[2023-03-10 06:25] LABS: RPR Screen Non Reactive (Non Reactive)
[2023-03-10 12:12] LABS: HSV 2 IGG AB < 0.91 index (0.00-0.90)
[2023-03-11 14:13] LABS: Hepatitis B Surface Antigen NEGATIVE s/c (NEGATIVE)
[2023-03-11 14:30] LABS: HIV 1 & 2 Ab/Ag 4th Gen Combo NEGATIVE (NEGATIVE); Hep C Virus Ab w/Reflex Quant NEGATIVE s/c (NEGATIVE)
== END ==
PROVIDERS: Physician Assistant; PCP Family Medicine; Referring Provider Urology; Visit Provider Urology
DX: Z20.9 Contact with and (suspected) exposure to unspecified communicable disease (principal); Z72.51 High risk heterosexual behavior
CPT/HCPCS: 36415; 86592; 86695; 86696; 86803; 87340; 87389; 87491; 87591

== ENCOUNTER → 2023-04-01 11:37 | Outpatient (CLI) | payer BC, SELFPAY ==
[2023-04-01 12:29] LABS: Hemoglobin A1C% w Est Avg Glu 5.6 % (4.0-6.0)
[2023-04-01 12:38] LABS: Alanine Aminotransferase 28 IU/L (<50); Albumin 4.2 g/dL (3.5-5.0); Albumin Globulin Ratio 1.6 (1.0-2.8); Alkaline Phosphatase 65 U/L (38-126); Aspartate Aminotransferase 24 IU/L (17-59); BUN Creatinine Ratio 9.6 (6-22); Bilirubin Total 0.6 mg/dL (0.2-1.3); Blood Urea Nitrogen 10 mg/dL (9-20); Calcium 9.3 mg/dL (8.4-10.2); Carbon Dioxide 27 mmol/L (22-32); Chloride 102 mmol/L (98-107); Cholesterol 174 mg/dL (140-199); Estimated Glomerular Filt Rate > 60 mL/min (>60); Globulin 2.7 g/dL (1.7-4.1); Glucose 95 mg/dL (70-100); HDL Cholesterol 36 mg/dL (40-60); HEMOLYSIS < 15 (0-50); LDL Cholesterol Calculated 116 mg/dL (<100); Potassium 4.3 mmol/L (3.4-5.1); Sodium 137 mmol/L (137-145); Total Protein 6.9 g/dL (6.3-8.2); Triglycerides 112 mg/dL (35-150)
[2023-04-01 13:06] LABS: Testosterone 286 ng/dL (132-813)
[2023-04-01 13:23] LABS: Vitamin B12 294 pg/mL (239-931)
== END ==
PROVIDERS: PCP Family Medicine; Referring Provider Physician Assistant; Visit Provider Physician Assistant
DX: E66.01 Morbid (severe) obesity due to excess calories (principal); E78.5 Hyperlipidemia, unspecified; R53.83 Other fatigue; E51.9 Thiamine deficiency, unspecified; R73.03 Prediabetes
CPT/HCPCS: 36415; 80053; 80061; 82607; 83036; 84403

== ENCOUNTER 2023-05-16 12:24 | Day surgery (SDC) | payer BC, SELFPAY ==
--- NOTE | 2023-05-16 | PATH_ITS ---
[facility] Accession Number: [id number] No. of containers..01 Tissue . 01 Material submitted: . colon - DESCENDING POLYP . 01 Diagnosis: Descending Polyp: Tubular adenoma. MRV 05/20/2023 1422 Local . 01 Electronically signed: . Nerissa Tejeda MD, Pathologist NPI- [id number] . 01 Gross description: . DESCENDING POLYP: Received in formalin is multiple fragment(s) of roberts, soft tissue measuring 0.8 x 0.5 x 0.2 cm in aggregate submitted entirely in 1 cassette(s) /AAY 05/17/2023 0404 Local . 01 Pathologist provided ICD-10: K63.5 . 01 CPT . 489902 Specimen Comment: A courtesy copy of this report has been sent to [phone] Performed at: 01 [facility] Cyt[facility] [address] [place] [address], [place], [place] [id number] MD Kosta Díaz MD Phone: [phone]
[2023-05-16 12:46] VITALS: BMI 48.7
[2023-05-16 12:59] VITALS: BP 152/78; PULSE 84; RESP 16; TEMP 36.4; O2SAT 96
[2023-05-16] MEDS: LACTATED RINGERS 1,000 ML 150 ML IV (13:01)
--- NOTE | 2023-05-16 13:14 | PM.PREOP ---
Pre-operative Note COVID-19 COVID-19 status: Not tested Interval Note History & Physical reviewed/Exam performed by Physician: Yes Changes to H&P: No ASA Class (for procedural sedation): III
--- NOTE | 2023-05-16 14:37 | PM.OP.COLON ---
Operative Date/Time/Diagnoses Date of procedure: 05/16/23 Time of procedure: 14:37 Pre-op diagnosis: Rectal bleeding Post-op diagnosis: same Procedure & Clinicians Study performed: Colonoscopy Same procedure as scheduled: Yes Surgeon: Cristofer Connell Procedure Notes Procedure in detail: Surgeon: Cristofer Connell MD Anesthesia: Tyrell Marinelli DO Procedure: The patient was brought to the endoscopy suite, placed in left lateral decubitus position. The patient was connected to monitoring devices. A time-out was performed. Sedation was administered. Once the patient was adequately sedated, a digital rectal exam was performed and was normal. The scope was then inserted and advanced to the cecum where the appendiceal orifice was identified and photographed. The scope was then slowly withdrawn over greater than 6 minutes. The mucosa was thoroughly inspected. There was a 7 mm polyp in the descending colon removed with a cold snare. The scope was retroflexed in the rectum. There were some mild internal hemorrhoids. The scope was straightened and removed. The patient was awakened and brought to recovery. Scope withdrawal time: 10 minutes Sedation time: 22 minutes EBL: 5 mL Findings: 7 mm descending colon polyp Post-procedure Disposition: PACU
[2023-05-16 14:42] VITALS: BP 101/44; PULSE 97; RESP 16; TEMP 37.2; O2SAT 95
[2023-05-16 14:47] VITALS: BP 112/61; PULSE 86; RESP 18; O2SAT 95
[2023-05-16 14:52] VITALS: BP 125/76; PULSE 85; RESP 13; O2SAT 97
[2023-05-16 15:00] VITALS: BP 108/60; PULSE 83; RESP 13; TEMP 36.8; O2SAT 97
== END 2023-05-16 15:05 | disposition home or self-care (01) ==
PROVIDERS: PCP Family Medicine; Referring Provider Surgery; Visit Provider Surgery
PROC: 0DJD8ZZ Inspection of Lower Intestinal Tract, Via Natural or Artificial Opening Endoscopic (ICD-10-PCS; CPT 45378; principal; 2023-05-16 13:15)
DX: K62.5 Hemorrhage of anus and rectum (principal); K64.8 Other hemorrhoids; D12.4 Benign neoplasm of descending colon
CPT/HCPCS: 45385; J2704

== ENCOUNTER 2023-06-04 10:25 | Emergency (ER) | payer BC, SELFPAY ==
[2023-06-04] VITALS (11 sets, daily range): BP systolic 138–146; BP diastolic 78–88; PULSE 70–79; RESP 17–23; TEMP 36.3; O2SAT 93–97; BMI 48.6
--- NOTE | 2023-06-04 10:33 | DI.RAD.S_ITS ---
PROCEDURE: XR CHEST 1V INDICATIONS: chest pain TECHNIQUE: One view of the chest was acquired. COMPARISON: [facility], CR, XR CHEST 1V, 07/12/2022, 23:49. FINDINGS: Surgical changes and devices: None. Lungs and pleura: Lungs are clear. No pleural effusions or pneumothorax. Mediastinum: Mediastinal contours appear normal. Heart size is normal. Bones and chest wall: No suspicious bony lesions. Overlying soft tissues appear unremarkable. IMPRESSION: Portable chest within normal limits for age. Dictated by: Abena Astorga M.D. on 06/04/2023 at 12:07 Approved by: Abena Astroga M.D. on 06/04/2023 at 12:07
[2023-06-04 11:04] LABS: Prothrombin Time 10.9 SECONDS (10.1-12.7)
[2023-06-04 11:07] LABS: PTT Partial Thromboplastin Tim 33 SECONDS (26-36)
[2023-06-04 11:08] LABS: Alanine Aminotransferase 33 IU/L (<50); Albumin 4.4 g/dL (3.5-5.0); Albumin Globulin Ratio 1.3 (1.0-2.8); Alkaline Phosphatase 83 U/L (38-126); Aspartate Aminotransferase 24 IU/L (17-59); Bilirubin Total 0.3 mg/dL (0.2-1.3); Blood Urea Nitrogen 12 mg/dL (9-20); Calcium 9.5 mg/dL (8.4-10.2); Carbon Dioxide 25 mmol/L (22-32); Chloride 101 mmol/L (98-107); Creatine Kinase 64 U/L (55-170); Estimated Glomerular Filt Rate > 60 mL/min (>60); Globulin 3.3 g/dL (1.7-4.1); Glucose 123 mg/dL (70-100); HEMOLYSIS < 15 (0-50); Lipase 40 U/L (23-300); Potassium 4.2 mmol/L (3.4-5.1); Sodium 136 mmol/L (137-145); Total Protein 7.7 g/dL (6.3-8.2)
[2023-06-04 11:09] LABS: Add Manual Diff / Slide Review NO; Basophils Absolute Auto 100 /uL (0-100); Basophils Percent Auto 1.3 % (0-2); Eosinophils Absolute Auto 600 /uL (0-450); Eosinophils Percent Auto 7.6 % (2-4); Hematocrit 44.4 % (41-53); Hemoglobin 15.2 g/dL (13.5-17.5); Lymphocytes Absolute Auto 1500 /uL (1100-4500); Lymphocytes Percent Auto 20.7 % (25-40); Mean Corpuscular HGB Conc 34.2 % (30-36); Mean Corpuscular Volume 84.8 fL (80-100); Monocytes Absolute Auto 800 /uL (0-900); Monocytes Percent Auto 10.5 % (3-14); Neutrophils Absolute Auto 4400 /uL (1500-7000); Neutrophils Percent Auto 59.9 % (50-75); Platelet Count 211 X10^3/uL (150-400); Red Blood Cell Count 5.23 X10^6/uL (4.5-5.9); Red Cell Distribution Width 13.9 % (11.6-14.8); White Blood Cell Count 7.3 X10^3/uL (4.5-11.0)
--- NOTE | 2023-06-04 11:14 | ED.CHESTPAIN ---
HPI - Chest Pain General Chief Complaint: Chest Pain Stated Complaint: possible heart attack Time Seen by Provider: 06/04/23 11:01 Source: patient Mode of arrival: Family Vehicle Limitations: no limitations History of Present Illness HPI narrative: Patient here for Resolve left-sided chest pressure pain. Patient at 9:00 a.m. this morning had a 10 minute episode of pressure discomfort in the left shoulder upper left chest radiating to the left neck. No syncope no numbness or tingling no shortness breath no sweating no diaphoresis. Patient took 2 aspirins prior to arrival. Patient states in the past 3 weeks he had a few episodes of discomfort in the left shoulder. He has no no no exertional chest pain or dyspnea in this time frame or today. No history of hypertension hyperlipidemia. Patient does not smoke cigarettes. No primary family history of coronary artery disease. Patient sees primary care, Dr. Brad Oliver. Patient states he is prediabetic, takes metformin. Discomfort in the left shoulder sometimes reproducible. Currently not reproducible. Patient denies any pain in the neck chest or shoulder Related Data Home Medications Medication Instructions Recorded Confirmed Saccharomyces boulardii 250 mg 250 mg PO BID 02/15/22 05/16/23 capsule (Daily Probiotic (S. boulardii)) cholecalciferol (vitamin D3) 10 10 mcg PO DAILY 02/15/22 05/16/23 mcg (400 unit) capsule emtricitabine 200 mg-tenofovir 1 tab PO DAILY 05/16/23 disoproxil fumarate 300 mg tablet (Truvada) Previous Rx's Medication Instructions Recorded ipratropium 0.5 mg-albuterol 3 mg 3 ml INH QIDP PRN #60 ea 06/20/16 (2.5 mg base)/3 mL nebulization soln albuterol sulfate 90 mcg/actuation 2 puff inhalation Q4H PRN 07/30/22 aerosol inhaler (ProAir HFA) shortness of breath #18 grams metformin 500 mg tablet,extended 500 mg PO QPM #90 tabs 03/01/23 release 24 hr sulfamethoxazole 800 1 tab PO BID #90 tabs 03/12/23 mg-trimethoprim 160 mg tablet (Bactrim DS) fluticasone 250 mcg-salmeterol 50 1 ea PO Q12H #180 ea 03/28/23 mcg/dose blistr powdr for inhalation tadalafil 10 mg tablet (Cialis) 10 mg PO .COMPLEX PRN sexual 04/03/23 activity #30 tabs aspirin 81 mg tablet,delayed 81 mg PO DAILY #30 tabs 06/04/23 release Allergies Allergy/AdvReac Type Severity Reaction Status Date / Time ciprofloxacin Allergy Severe Cramping Verified 06/04/23 10:43 of the Muscles corn [CORN] Allergy Severe aslthma Verified 06/04/23 10:43 and Upper resp inflamamation. CAT DANDER Allergy Severe aslthma Uncoded 06/04/23 10:43 and Upper resp inflamamation. GRASS Allergy Severe aslthma Uncoded 06/04/23 10:43 and Upper resp inflamamation. Review of Systems Review of Systems Narrative: GENERAL: negative chills, fatigue, malaise, fever, sweats. HEENT: negative sinus pain, ear pain, sore throat RESPIRATORY: negative dyspnea, cough CARDIOVASCULAR: Pulse chest pain, negative palpitations GASTROINTESTINAL: negative nausea, vomiting, abdominal pain : negative dysuria, frequency, hematuria MUSCULOSKELETAL: negative muscle or bony pain SKIN: negative rash, skin lesions NEUROLOGIC: negative weakness, numbness ROS Unobtainable: All systems reviewed & are unremarkable except as noted in HPI and below Patient History Medical History Prostatitis Decreased libido Epididymitis Abnormal testicular exam History of orchitis Abdominal pain Lower urinary tract symptoms Left hydrocele Low back pain Hip pain Pancreatitis Asthma exacerbation Surgical History History of cholecystectomy Family History Father Cancer CAD in [place] artery Mother Eczema Social History marital status: number of children: 3 household members: spouse and children Smoking Status: Never smoker alcohol intake: current substance use type: does not use Type(s) of exercise: aerobic frequency: 1-2 times per week Smoking Status: Never smoker alcohol intake frequency: a few times a month Substance Use Type: marijuana Exam Narrative Exam Narrative: GENERAL: in no distress, not toxic not dyspneic HEAD: Normocephalic. EYES: Pupils equal round ENT: Mucous membranes moist. NECK: Trachea midline. CARDIOVASCULAR: Regular rate and rhythm, strong heart sounds, strong bilateral carotid and radial pulses. Chest is nontender. RESPIRATORY: Clear to auscultation. Breath sounds equal bilaterally. No wheezes, rales, or rhonchi. GASTROINTESTINAL: Abdomen soft, non-tender EXTREMITIES: No gross deformities. No left shoulder tenderness. Able to bring hand above the head and across the chest without any shoulder discomfort. BACK: No flank tenderness. NEURO: AOx4. 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 Stay safe gait from his bed to the bathroom. No ataxia. SKIN: Warm and dry PSYCH: Not anxious, is cooperative Initial Vital Signs Initial Vital Signs: Vital Signs Pulse Rate 77 06/04/23 10:32 Respiratory Rate 23 06/04/23 10:32 Pulse Oximetry 95 06/04/23 10:32 Oxygen Delivery Method Room Air 06/04/23 10:32 Scores HEART Score Heart Score history: Slightly Suspicious Heart Score EKG: Normal Heart Score Age: < 45 years old Heart Score risk factors: 1-2 risk factors Heart Score troponin: < or = to normal limit Heart Score Total: 1 Course Orders Ordered: ED Orders 06/04/23 10:33 XR chest 1V Stat EKG-12 Lead Stat 06/04/23 10:49 Complete Blood Count AUTO DIFF Stat Comprehensive Metabolic Panel Stat Lipase Stat Magnesium Stat PTT Partial Thromboplastin Wale Stat Prothrombin Time INR Stat Troponin & CK Cardiac Panel Stat 06/04/23 11:19 D Dimer Stat 06/04/23 13:05 Troponin & CK Cardiac Panel Stat Discontinued Medications Aspirin (Aspirin 81 Mg Chew Tab) 324 mg PO NOW ONE Stop: 06/04/23 10:33 Last Admin: 06/04/23 10:38 Dose: Not Given Documented By: RLS Vital Signs Vital signs: Vital Signs - 8 hr 06/04/23 10:32 06/04/23 10:33 06/04/23 10:33 Temperature Pulse Rate 77 79 Respiratory Rate 23 18 Blood Pressure 146/80 H Pulse Oximetry 95 96 Oxygen Delivery Method Room Air 06/04/23 10:39 06/04/23 11:00 06/04/23 11:02 Temperature 97.4 F L Pulse Rate 77 70 Respiratory Rate 17 21 Blood Pressure 146/80 H 140/88 Pulse Oximetry 96 93 Oxygen Delivery Method Room Air 06/04/23 11:02 06/04/23 11:30 06/04/23 12:00 Temperature Pulse Rate 75 78 72 Respiratory Rate 23 Blood Pressure Pulse Oximetry 96 97 95 Oxygen Delivery Method Room Air 06/04/23 12:30 06/04/23 13:00 06/04/23 13:30 Temperature Pulse Rate 78 78 76 Respiratory Rate 19 18 18 Blood Pressure Pulse Oximetry 95 95 96 Oxygen Delivery Method Room Air 06/04/23 14:00 Temperature Pulse Rate 75 Respiratory Rate 17 Blood Pressure 138/78 Pulse Oximetry 96 Oxygen Delivery Method Room Air MDM - Chest Pain Lab Data 06/04/23 10:49 06/04/23 10:49 Labs: Lab Results 06/04/23 06/04/23 06/04/23 Range/Units 10:49 11:19 13:05 WBC 7.3 (4.5-11.0) X10^3/uL RBC 5.23 (4.5-5.9) X10^6/uL Hgb 15.2 (13.5-17.5) g/dL Hct 44.4 (41-53) % MCV 84.8 (80-100) fL MCH 29.0 (26-34) PG MCHC 34.2 (30-36) % RDW 13.9 (11.6-14.8) % Plt Count 211 (150-400) X10^3/uL Neut % (Auto) 59.9 (50-75) % Lymph % (Auto) 20.7 L (25-40) % Whitley % (Auto) 10.5 (3-14) % Eos % (Auto) 7.6 H (2-4) % Baso % (Auto) 1.3 (0-2) % Neut # (Auto) 4400 (9695-9149) /uL Lymph # (Auto) 1500 (1779-3955) /uL Whitley # (Auto) 800 (0-900) /uL Eos # (Auto) 600 H (0-450) /uL Baso # (Auto) 100 (0-100) /uL PT 10.9 (10.1-12.7) SECONDS INR 1.0 (0.9-1.3) APTT 33 (26-36) SECONDS D-Dimer 409 (<500) ng/ml Sodium 136 L (137-145) mmol/L Potassium 4.2 (3.4-5.1) mmol/L Chloride 101 (98-107) mmol/L Carbon Dioxide 25 (22-32) mmol/L BUN 12 (9-20) mg/dL Creatinine 0.80 (0.66-1.25) mg/dL Estimated GFR > 60 (>60) mL/min BUN/Creatinine Ratio 15.0 (6-22) Glucose 123 H (70-100) mg/dL Calcium 9.5 (8.4-10.2) mg/dL Magnesium 2.0 (1.6-2.3) mg/dL Total Bilirubin 0.3 (0.2-1.3) mg/dL AST 24 (17-59) IU/L ALT 33 (<50) IU/L Alkaline Phosphatase 83 (38-126) U/L Total Creatine Kinase 64 64 (55-170) U/L Troponin I < 0.012 < 0.012 (0.01-0.034) ng/mL Total Protein 7.7 (6.3-8.2) g/dL Albumin 4.4 (3.5-5.0) g/dL Globulin 3.3 (1.7-4.1) g/dL Albumin/Globulin Ratio 1.3 (1.0-2.8) Lipase 40 (23-300) U/L MDM Narrative Medical decision making narrative: Patient here for Resolve left-sided chest pressure pain. Patient at 9:00 a.m. this morning had a 10 minute episode of pressure discomfort in the left shoulder upper left chest radiating to the left neck. No syncope no numbness or tingling no shortness breath no sweating no diaphoresis. Patient took 2 aspirins prior to arrival. Patient states in the past 3 weeks he had a few episodes of discomfort in the left shoulder. He has no no no exertional chest pain or dyspnea in this time frame or today. No history of hypertension hyperlipidemia. Patient does not smoke cigarettes. No primary family history of coronary artery disease. Patient sees primary care, Dr. Brad Oliver. Patient states he is prediabetic, takes metformin. Discomfort in the left shoulder sometimes reproducible. Currently not reproducible. Patient denies any pain in the neck chest or shoulder After history and exam CBC CMP troponin x2 chest x-ray EKG lipase MDM CC: Chest pain Complicating co-morbidities: None Data collected from: Patient Medical records reviewed: No recent visits for this complaint Differential considered: Includes but not limited to STEMI non-STEMI angina costochondritis pleurisy PE aortic dissection Exam documented above, pertinent findings include: Nontender chest Lab Test results independently reviewed as above. Pertinent findings: WBC 7.3 hemoglobin 15.2 INR 1.0 Troponin less than 0.012 x2 D-dimer 409, within normal limits Sodium 136 potassium 4.2 glucose 123 AST 24 ALT 33 Independently reviewed EKG normal sinus rhythm rate [address] elevation or depression Imaging studies independently reviewed: Chest x-ray no acute finding Consultations: 12:06 p.m.. Spoke with primary care, Dr. Brad Oliver, if 2nd troponin normal at 1:00 p.m, Discharge patient home. He will see patient in the office in 2 days to set up outpatient stress test. Patient did take baby aspirin daily until then. Treatments: None required. Patient remained chest pain-free Re-evaluations: 8:06 p.m.. Patient remains chest pain-free. Reviewed results with patient. Troponin x2 are negative. I did talk to his primary care and wants him to follow up in 2 days. Patient desires this plan and return precautions reviewed with him. Nontoxic at discharge. Discussion: Appropriate for discharge home. Exam and laboratory studies are reassuring. Patient has low heart score and low heart risk factors. I did review primary care as well and does not want to admit patient and wants patient to be discharged home and follow up in office in 2 days to schedule an outpatient stress test. Patient remains chest pain-free during course of stay. Hemodynamically stable. Not toxic at discharge with return precautions reviewed with him. He desires discharge home Diagnosis: Chest pain Discharge Plan Departure Patient Disposition: Home Clinical Impression: Chest pain Qualifiers: Chest pain type: unspecified Qualified Code(s): R07.9 - Chest pain, unspecified Instructions: DI for Chest Pain Activity Restrictions/Additional Instructions: Please call Dr. Oliver office today to confirm your office appointment for this upcoming , in 2 days, informed the office that Dr. Oliver was contacted today and wants to see you. Please continue baby aspirin 81 mg a day, starting tomorrow. Prescription has been provided for you. Today's exam and laboratory studies and results are reassuring. However, return if worse if any questions or concerns. You will need to schedule a cardiac stress test with Dr. Oliver. Prescriptions: New aspirin 81 mg tablet,delayed release (DR/EC) 81 mg PO DAILY Qty: 30 0RF No Action tadalafil [Cialis] 10 mg tablet 10 mg PO .COMPLEX PRN (Reason: sexual activity) Qty: 30 0RF Rx Instructions: 10 mg orally one hour prior to sexual activity PRN; do not use more than 1 dose per 24hrs ipratropium-albuterol 3 ML solution for nebulization 3 ml INH QIDP PRNQty: 60 1RF albuterol sulfate [ProAir HFA] 90 mcg/actuation HFA aerosol inhaler 2 puff INHALATION Q4H PRN (Reason: shortness of breath) Qty: 18 3RF metformin 500 mg tablet extended release 24 hr 500 mg PO QPM Qty: 90 1RF Rx Instructions: Take one tablet each evening at dinner. fluticasone propion-salmeterol 250-50 mcg/dose blister with device 1 ea PO Q12H Qty: 180 1RF emtricitabine-tenofovir (TDF) [Truvada] 200-300 mg tablet 1 tab PO DAILY sulfamethoxazole-trimethoprim [Bactrim DS] 800-160 mg tablet 1 tab PO BID Qty: 90 1RF Saccharomyces boulardii [Daily Probiotic (S. boulardii)] 250 mg capsule 250 mg PO BID cholecalciferol (vitamin D3) 10 mcg (400 unit) capsule 10 mcg PO DAILY Referrals: Brad Oliver MD [Primary Care Provider] - Stand Alone Forms: Patient Portal/API
[2023-06-04 11:20] LABS: Troponin I < 0.012 ng/mL (0.01-0.034)
[2023-06-04 11:30] LABS: D Dimer 409 ng/ml (<500)
[2023-06-04 13:26] LABS: Creatine Kinase 64 U/L (55-170)
[2023-06-04 13:39] LABS: Troponin I < 0.012 ng/mL (0.01-0.034)
== END 2023-06-04 14:26 | disposition home or self-care (01) ==
PROVIDERS: Emergency Provider Emergency Medicine; PCP Family Medicine
DX: R07.9 Chest pain, unspecified (principal)
CPT/HCPCS: 36415; 71045; 80053; 82550; 83690; 83735; 84484; 85025; 85379; 85610; 85730; 93005; 93010; 99284

== ENCOUNTER → 2024-01-28 18:09 | Outpatient (CLI) | payer BC, SELFPAY | PROVIDERS: PCP Family Medicine; Visit Provider Physician Assistant Surgical | DX: R30.0 Dysuria (principal) | CPT/HCPCS: 87086 ==

== ENCOUNTER → 2024-02-15 12:29 | Outpatient (CLI) | payer BC, SELFPAY ==
--- NOTE | 2024-02-15 12:30 | DI.RAD.S_ITS ---
PROCEDURE: XR CHEST 2V INDICATIONS: Cough TECHNIQUE: 2 views of the chest were acquired. COMPARISON: [facility], CR, XR CHEST 1V, 06/04/2023, 10:48. FINDINGS: Surgical changes and devices: None. Lungs and pleura: Lungs are clear. No pleural effusions or pneumothorax. Mediastinum: Mediastinal contours are normal. Heart size is normal. Bones and chest wall: No suspicious bony abnormalities. Soft tissues appear unremarkable. IMPRESSION: No acute cardiopulmonary process. Dictated by: Sheri Longo M.D. on 02/15/2024 at 15:58 Approved by: Sheri Longo M.D. on 02/15/2024 at 16:01
== END ==
PROVIDERS: PCP Family Medicine; Referring Provider Nurse Practitioner Family; Visit Provider Nurse Practitioner Family
DX: R05.9 Cough, unspecified (principal)
CPT/HCPCS: 71046

== ENCOUNTER → 2024-07-27 17:27 | Outpatient (CLI) | payer BC, SELFPAY ==
--- NOTE | 2024-07-27 17:28 | DI.RAD.S_ITS ---
PROCEDURE: XR CHEST 2V INDICATIONS: cough TECHNIQUE: 2 views of the chest were acquired. COMPARISON: [facility], CR, XR CHEST 2V, 02/15/2024, 12:29. [facility], CR, XR CHEST 1V, 06/04/2023, 10:48. FINDINGS: Surgical changes and devices: None. Lungs and pleura: Right upper lobe consolidation. Prominent pulmonary markings. No pleural effusions or pneumothorax. Mediastinum: Mediastinal contours are normal. Heart size is normal. Bones and chest wall: No suspicious bony abnormalities. Soft tissues appear unremarkable. IMPRESSION: Right upper lobe pneumonia. Recommend follow-up to resolution. Dictated by: Tyrese Mejía M.D. on 07/27/2024 at 19:18 Approved by: Tyrese Mejía M.D. on 07/27/2024 at 19:19
== END ==
PROVIDERS: PCP Family Medicine; Referring Provider Nurse Practitioner Family; Visit Provider Nurse Practitioner Family
DX: R05.9 Cough, unspecified (principal); J18.9 Pneumonia, unspecified organism
CPT/HCPCS: 71046

== ENCOUNTER → 2025-05-26 09:15 | Outpatient (CLI) | payer OTHER, SELFPAY ==
[2025-05-26 11:00] LABS: Urine N gonorrhoeae NOT DETECTED
[2025-05-26 11:01] LABS: Urine Chlamydia NOT DETECTED
== END ==
PROVIDERS: PCP Family Medicine; Visit Provider Nurse Practitioner Family
DX: N48.9 Disorder of penis, unspecified (principal)
CPT/HCPCS: 36415; 86592; 86803; 87210; 87340; 87389; 87491; 87529; 87591

== ENCOUNTER → 2025-05-26 09:27 | Outpatient (CLI) | payer OTHER, SELFPAY ==
[2025-05-26 11:02] LABS: Hepatitis B Surface Antigen NEGATIVE s/c (NEGATIVE)
[2025-05-26 11:22] LABS: HIV 1 & 2 Ab/Ag 4th Gen Combo NEGATIVE (NEGATIVE); Hep C Virus Ab w/Reflex Quant NEGATIVE s/c (NEGATIVE)
[2025-05-27 21:07] LABS: HSV 1 DNA Negative (Negative); HSV 2 DNA Negative (Negative)
== END ==
PROVIDERS: PCP Family Medicine; Referring Provider Family Medicine; Visit Provider Nurse Practitioner Family
DX: N48.9 Disorder of penis, unspecified (principal)
CPT/HCPCS: 36415; 86592; 86803; 87340; 87389; 87529